=== PATIENT | male | born 1935 | race Caucasian/White ===

== ENCOUNTER 2025-07-31 03:53 | Day surgery (SDC) | payer OTHER, SELFPAY ==
[2025-07-24 09:23] VITALS: BMI 25.5
--- OUTSIDE RECORDS SUMMARY | 2025-07-31 03:56 | XMS_ITS | Encounter Summary ---
Author Organization [facility] Healthcare Address [address] [place] [address] Care Team Providers Care Puffer Tender Name Role Phone Terry Platt MD Primary Care Provider Encounter Details Date Type Department Care Team (Late st Contact Info) Description 07/05/2025 Telephone [facility] Medical Group Cardiology [address] [place] [address] Uriel De La Garza MD [address] [facility] [address] [place] [address] [facility], [place] [place], [place] [id number] Social History Tobacco Use Types Packs/Day Years Used Date Smoking Tobacco: Never Smokeless Tobacco: Never Alcohol Use Standard Drinks/Week Comments Yes 1 (1 standard drink = 0.6 oz pur e alcohol) monthly Sex and Gender Information Value Date Recorded Sex Assigned at Not on file 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 Appt made for today with CT, he will bring what records he has from the Hospital visit in [place] with him to appt. * Telephone Encounter - Codie Garland RN - 07/12/2025 2:40 PM CDT Spoke to pt who did go to ER in [place] last week and was admitted for an overnight stay and required a blood transfusion. States he was told he might possibly have a GI bleed r/t his Eliquis and tofollow up with an egd/colon once home. Pt states he was told to hold his Eliquis but did not want to until [facility] approved of it being held. He did have some swelling in his feet and ankles during the trip. States he was also given scripts for Furosemide 20 mg daily as needed, Potassium 10 meq daily on days when he takes Furosemide, and Pantoprazole 40 mg (he has not started this yet). He is aware to call his PCP regarding a follow up with them and GI referrals. Forwarded to [facility] * Telephone Encounter - Codie Garland RN - 07/12/2025 2:05 PM CDT LM with spouse to return call * Telephone Encounter - Codie Garland RN - 07/12/2025 9:45 AM CDT Tried to call pt, no answer and no voicemail. * Telephone Encounter - Viktoria Malik - 07/12/2025 9:05 AM CDT Pt calling in regard to the below message. States that he would like to speak with [facility] about his symptoms. Advised pt to go to the ED to be evaluated and he stated that he would rather discuss with [facility]. Please advise. Thank you. Contact [phone] * Telephone Encounter - Bailey Frye RN - 07/05/2025 9:28 AM CDT Spoke with pt, pt states that he is in [place] for a wedding and he has been experiencing increasing shortness of breath and weak and wobbly in the knees. Pt denies any lower extremity swelling orchest pain. Reports shortness of breath is worse with exertion. Pt reports that he has been using oxygen boost that he got over the counter which has helped some. Advised pt that he should be evalua tomasz in the ER for his symptoms. Pt verbalizes understanding. * Telephone Encounter - Ines Villegas - 07/05/2025 9:02 AM CDT Patient called in stating that he is having shortness of breath and trouble breathing. Requesting acall back. Thank you. Contact : [phone] documented in this encounter Plan of Treatment Not on file documented as of this encounter Visit Diagnoses Not on filedocumented in this encounter Care Teams Puffer Tender Relationship Specialty Start Date End Date Terry Platt MD [address] [facility] [address] [place] [address] PCP - General Family Medicine 09/01/18 documented as of this encounter
--- OUTSIDE RECORDS SUMMARY | 2025-07-31 03:56 | XMS_ITS | Encounter Summary ---
Author Organization [facility] Healthcare Address [address] [place] [address] Care Team Providers Care Media Planner / Buyer Name Role Phone Terry Platt MD Primary Care Provider Encounter Details Date Type Department Care Team (Late st Contact Info) Description 07/24/2025 Telephone [facility] Medical Group Cardiology [address] [place] [address] Uriel De La Garza MD [address] [facility] [address] [place] [address] [facility], [place] [address] [place] [address] Social History Tobacco Use Types Packs/Day Years Used Date Smoking Tobacco: Never Smokeless Tobacco: Never Alcohol Use Standard Drinks/Week Comments Yes 1 (1 standard drink = 0.6 oz pur e alcohol) monthly Sex and Gender Information Value Date Recorded Sex Assigned at Not on file 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 When she faxed it over, she put the incorrect . She stated that their fax machine is down and is not able to resend it. Please advise. Thank you. Contact : [phone] documented in this encounter Plan of Treatment Not on file documented as of this encounter Visit Diagnoses Not on filedocumented in this encounter Care Teams Media Planner / Buyer Relationship Specialty Start Date End Date Terry Platt MD [address] [facility] [address] [place] [address] PCP - General Family Medicine 09/01/18 documented as of this encounter
--- OUTSIDE RECORDS SUMMARY | 2025-07-31 03:56 | XMS_ITS | Clinical Summary ---
Author Organization [facility] [address] Address [address] [place] [address] Care Team Providers Care Food Aide Name Role Phone Terry Platt MD Primary Care Provider Allergies No known active allergies Medications acetaminophen (TYLENOL) 325 mg tablet Take 2 tablets (650 mg total) by mouth every 6 (six) hours as needed for pain Active glucosamine sulfate 500 mg tablet Take 1 tablet by mouth daily Active Eliquis 2.5 mg tablet Take 1 tablet (2.5 mg total) by mouth 2 (two) times a day 180 tablet 3 0 Active metoprolol XL (TOPROL-XL) 25 mg extended release tablet Take 1 tablet (25 mg total) by mouth daily 90 tablet [address] (PROTONIX) 40 mg EC tablet Take 1 tablet (40 mg total) by mouth daily before breakfast 5 Active furosemide (LASIX) 20 mg tablet Take 1 tablet (20 mg total) by mouth daily as needed (edema) 30 tablet 2 5 Active potassium chloride ER 10 mEq CR tablet Take 1 tablet/capsul e (10 mEq total) by mouth daily as needed (To be taken with furosemide) 30 tablet 2 5 Active furosemide (LASIX) 20 mg tablet Take 1 tablet (20 mg total) by mouth daily as needed 5 07/20/20 25 Discontinu ed(Reorder ) potassium chloride ER 10 mEq CR tablet Take 1 tablet/capsul e (10 mEq total) by mouth daily as needed 5 10/02/20 25 Discontinu ed(Reorder ) Active Problems Problem Noted Date Diagnosed Date NICM (nonischemic cardiomyopathy) 11/02/2018 Pulmonary hypertension 11/02/2018 Atrial fibrillation 09/02/2018 Chronic anticoagulation 09/02/2018 RBBB 09/02/2018 Osteoarthritis 09/02/2018 Encounters Date Type Department Care Team Description 07/24/2025 Telephone [facility] Cardiology [address] [place] [address] [place] [phone] Mert Mix MD 07/20/2025 Telephone [facility] Cardiology [address] [place] [address] [place] [phone] Mert Mix MD Med Refill 07/17/2025 Telephone [place] [address] [place] [phone] Sri Alex NP LAAO 07/13/2025 1:00 PM CDT Office Visit [place] [address] [place] [phone] Sri Alex NP Symptomatic anemia (Primary Dx); Encounter for anticoagulation discussion and counseling; Chronic heart failure with preserved ejection fraction (HFpEF); Hospital discharge follow-up 07/05/2025 Telephone [place] [address] [place] [phone] Mert Mix MD 05/03/2025 Results Follow-Up [place] [address] [place] [phone] Mert Mix MD Transthoracic Echo (TTE) Complete W Doppler/CF 05/02/2025 1:00 PM CDT Ancillary Procedure [place] [address] [place] [phone] NICM (nonischemic cardiomyopathy) (HCC); Longstanding persistent atrial fibrillation (HCC); Pulmonary hypertension (HCC) from Last 3 Months Surgical History Surgery Date Site/Laterality Comments KNEE ARTHROCENTESIS PROSTATECTOMY Medical History Medical History Date Comments Atrial fibrillation (HCC) Cataract Prostate cancer (HCC) Family History Medical History Relation Name Comments Stroke Father Relation Name Status Comments Brother 1 Alive Brother 2 Alive Brother 3 Alive Father (Age 83) Mother (Age 98) Sister 1 Alive Sister 2 Alive Social History Tobacco Use Types Packs/Day Years Used Date Smoking Tobacco: Never Smokeless Tobacco: Never Alcohol Use Standard Drinks/Week Comments Yes 1 (1 standard drink = 0.6 oz pur e alcohol) monthly Sex and Gender Information Value Date Recorded Sex Assigned at Not on file 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 Gender Identity Not on file Sexual Orientation Not on file Obstetrics History Last Filed Vital Signs Vital Sign Reading Time Taken Comments Blood Pressure 112/66 07/13/2025 1:05 PM CDT Pulse 97 07/13/2025 1:05 PM CDT Temperature - - Respiratory Rate - - Oxygen Saturation 97% 07/13/2025 1:05 PM CDT Inhaled Oxygen Concentration - - Weight 80.3 kg (177 lb) 07/13/2025 1:05 PM CDT Height 175.3 cm (5' 9) 07/13/2025 1:05 PM CDT Body Mass Index 26.14 07/13/2025 1:05 PM CDT Plan of Treatment Health Maintenance Due Date Last Done Comments Depression Screening 1935 Fall Risk Assessment 1935 DTaP/Tdap/Td Vaccine (1 - Tdap) 1946 Hepatitis B Screening 1953 Pneumococcal vaccine 65+ (1 of 2 - PCV) 1954 Zoster Vaccine (1 of 2) 1985 Well Visit 65+ 2000 Influenza Vaccine (#1) 2025 8, 08/17/2017, 10/06/2013 Procedures Procedure Name Priority Date/Time Associated Diagnosis Comments TRANSTHORACIC ECHO (TTE) COMPLETE W DOPPLER/CF WO CONTRAST Routine 05/02/2025 2:04 PM CDT NICM (nonischemic cardiomyopathy) (HCC) Longstanding persistent atrial fibrillation (HCC) Pulmonary hypertension (HCC) from Last 3 Months Results * TRANSTHORACIC ECHO (TTE) COMPLETE W DOPPLER/CF WO CONTRAST (05/02/2025 2:04 PM CDT) Estimated EF 55-60 % CONS SCIMAGE EF Mod BP 54 % CONS SCIMAGE Anatomical Region Laterality Modality Ultrasound 05/02/2025 1:04 PM CDT Narrative 05/02/2025 4:27 PM CDT [facility] Medical Group Cardiology [address], [place] [address] [address] [facility] [address], [place] [address] P:[phone] P:[phone] Echocardiographic Report Patient Name: MONICA WALLACE R : 1935 Study Date: 05/02/2025 1:04:06 PM Gender: M Stone Gluer: Dianna Giraldo)([place]), [facility] Location: [facility] Provider: MERT MIX Height(Cm): 175 BSA: 1.95 Weight(Kg): 78.5 Heart Rate: 86 BP: 110 / 72 Quality: Good Order Provider: MERT MIX PROCEDURES: Echocardiographic Report: Transthoracic echocardiogram with complete 2D, M-Mode, and color Doppler examination. With Strain Analysis. INDICATIONS: I42.8 Other cardiomyopathies, I48.11 Longstanding persistent atrial fibrillation, and I27.20 Pulmonary hypertension, unspecified. MEASUREMENTS: 2D/MM Value Range Doppler Value Range EF Mod BP 54 % [ 52 - 72 ] STARLA Vmax 2.19 cm2 [ 2.00 - 4.00 ] Estimated EF 55-60 % AV Mean PG 5 mmHg LV GLS -13.11 % AV Peak Jean 1.62 m/s [ 1.00 - 1.70 ] LVIDd 2D 5.30 cm [ 4.20 - 5.80 ] AV Peak PG 10 mmHg LVIDs 2D 3.81 cm [ 2.50 - 4.00 ] AV VTI 33.15 cm LVPWd 2D 0.83 cm [ 0.60 - 1.00 ] LVOT Diam 2.00 cm [ 1.70 - 2.10 ] IVSd 2D 0.87 cm [ 0.60 - 1.00 ] LVOT Peak Jean 1.13 m/s [ 0.70 - 1.10 ] AoR Diam 2D 3.32 cm [ 3.10 - 3.70 ] LVOT VTI 23.82 cm LA Volume 98.34 ml [ 18.00 - 58.00 ] PV Peak Jean 1.20 m/s [ 0.40 - 0.80 ] LA Volume Index 50 cc/m2 [ 16 - 28 ] TR Peak Jean 2.68 m/s [ 1.00 - 2.80 ] RA Volume 75.64 ml TR Peak PG 29 mmHg RV S` 11.99 mmHg Tapse 1.64 cm [ 1.71 - 5.00 ] 2D/MM Value Range Doppler Value Range - FINDINGS: Interpretation Site: Exam was interpreted at [facility]. Left Ventricle: Normal left ventricular systolic function. No focal wall motion abnormalities. Normal left ventricular wall thickness. Mild enlargement of left ventricle cavity. Diastolic dysfunction is present. Ejection fraction is measured at 54 %. Ejection Fraction is visually estimated to be 55-60 %. Global Longitudinal Strain is -13 %. GLS is abnormal. Right Ventricle: Normal right ventricular systolic function. Mild enlargement of right ventricle. Left Atrium: There is severe enlargement of left atrium. Right Atrium: There is severe enlargement of right atrium. Atrial Septum: Normal atrial septum. Mitral Valve: Normal appearance of the mitral valve. Mild mitral valve regurgitation. There is no hemodynamically significant mitral stenosis by Doppler. Aortic Valve: No evidence of hemodynamically significant aortic stenosis by Doppler. Aortic cusps appear mildly sclerotic. Trileaflet aortic valve. Mild to moderate aortic valve regurgitation. Tricuspid Valve: Normal appearance of the tricuspid valve. Normal right ventricular systolic pressure. Estimated peak RVSP is 30-35 mmHg. Mild tricuspid regurgitation. Pulmonic Valve: Normal appearance of the pulmonic valve. No pulmonic stenosis. Moderate pulmonic regurgitation. Pericardium: Normal pericardium with no significant pericardial effusion. Aorta: Ascending aorta is mildly dilated. No aortic root dilation. IVC: Normal size and normal respiratory collapse consistent with normal right atrial pressure (<5 mmHg). CONCLUSIONS: Normal left ventricular systolic function. No focal wall motion abnormalities. Normal left ventricular wall thickness. Mild enlargement of left ventricle cavity. Diastolic dysfunction is present. Ejection fraction is measured at 54 %. Ejection Fraction is visually estimated to be 55-60 %. Global Longitudinal Strain is -13 %. Normal right ventricular systolic function. Mild enlargement of right ventricle. There is severe enlargement of left atrium. There is severe enlargement of right atrium. Mild mitral valve regurgitation. Mild to moderate aortic valve regurgitation. Mild tricuspid regurgitation. Moderate pulmonic regurgitation. Ascending aorta is mildly dilated. No aortic root dilation. Atrial fibrillation. Electronically Signed By: Mert Mix MD 05/02/2025 4:26:54 PM CDT Procedure Note Mert Mix MD - 05/02/2025 [facility] Medical Group Cardiology [address] [facility] [address] [address] [address] [facility] [address], [place] [address] P:[phone] P:[phone] Echocardiographic Report Patient Name: MONICA WALLACE R : 1935 Study Date: 05/02/2025 1:04:06 PM Gender: M Stone Gluer: Dianna Giraldo)([place]), [facility] Location: [facility] Provider: MERT MIX Height(Cm): 175 BSA: 1.95 Weight(Kg): 78.5 Heart Rate: 86 BP: 110 / 72 Quality: Good Order Provider: MERT MIX PROCEDURES: Echocardiographic Report: Transthoracic echocardiogram with complete 2D, M-Mode, and color Dopplerexamination. With Strain Analysis. INDICATIONS: I42.8 Other cardiomyopathies, I48.11 Longstanding persistent atrialfibrillation, and I27.20 Pulmonary hypertension, unspecified. MEASUREMENTS: 2D/MM Value Range Doppler ValueRange EF Mod BP 54 % [ 52 - 72 ] STARLA Vmax 2.19cm2 [ 2.00 - 4.00 ] Estimated EF 55-60 % AV Mean PG 5mmHg LV GLS -13.11 % AV Peak Jean 1.62m/s [ 1.00 - 1.70 ] LVIDd 2D 5.30 cm [ 4.20 - 5.80 ] AV Peak PG 10mmHg LVIDs 2D 3.81 cm [ 2.50 - 4.00 ] AV VTI 33.15cm LVPWd 2D 0.83 cm [ 0.60 - 1.00 ] LVOT Diam 2.00cm [ 1.70 - 2.10 ] IVSd 2D 0.87 cm [ 0.60 - 1.00 ] LVOT Peak Jean 1.13m/s [ 0.70 - 1.10 ] AoR Diam 2D 3.32 cm [ 3.10 - 3.70 ] LVOT VTI 23.82cm LA Volume 98.34 ml [ 18.00 - 58.00 ] PV Peak Jean 1.20m/s [ 0.40 - 0.80 ] LA Volume Index 50 cc/m2 [ 16 - 28 ] TR Peak Jean 2.68m/s [ 1.00 - 2.80 ] RA Volume 75.64 ml TR Peak PG 29mmHg RV S` 11.99 mmHg Tapse 1.64 cm [ 1.71 - 5.00 ] 2D/MM Value Range Doppler ValueRange - FINDINGS: Interpretation Site: Exam was interpreted at [facility]. Left Ventricle: Normal left ventricular systolic function. No focal wall motionabnormalities. Normal left ventricular wall thickness. Mild enlargement of left ventriclecavity. Diastolic dysfunction is present. Ejection fraction is measured at 54 %. EjectionFraction is visually estimated to be 55-60 %. Global Longitudinal Strain is -13 %. GLSis abnormal. Right Ventricle: Normal right ventricular systolic function. Mild enlargement of rightventricle. Left Atrium: There is severe enlargement of left atrium. Right Atrium: There is severe enlargement of right atrium. Atrial Septum: Normal atrial septum. Mitral Valve: Normal appearance of the mitral valve. Mild mitral valve regurgitation.There is no hemodynamically significant mitral stenosis by Doppler. Aortic Valve: No evidence of hemodynamically significant aortic stenosis by Doppler.Aortic cusps appear mildly sclerotic. Trileaflet aortic valve. Mild to moderate aorticvalve regurgitation. Tricuspid Valve: Normal appearance of the tricuspid valve. Normal right ventricularsystolic pressure. Estimated peak RVSP is 30-35 mmHg. Mild tricuspid regurgitation. Pulmonic Valve: Normal appearance of the pulmonic valve. No pulmonic stenosis. Moderatepulmonic regurgitation. Pericardium: Normal pericardium with no significant pericardial effusion. Aorta: Ascending aorta is mildly dilated. No aortic root dilation. IVC: Normal size and normal respiratory collapse consistent with normal rightatrial pressure (<5 mmHg). CONCLUSIONS: Normal left ventricular systolic function. No focal wall motionabnormalities. Normal left ventricular wall thickness. Mild enlargement of left ventriclecavity. Diastolic dysfunction is present. Ejection fraction is measured at 54 %. EjectionFraction is visually estimated to be 55-60 %. Global Longitudinal Strain is -13 %. Normal right ventricular systolic function. Mild enlargement of rightventricle. There is severe enlargement of left atrium. There is severe enlargement of right atrium. Mild mitral valve regurgitation. Mild to moderate aortic valve regurgitation. Mild tricuspid regurgitation. Moderate pulmonic regurgitation. Ascending aorta is mildly dilated. No aortic root dilation. Atrial fibrillation. Electronically Signed By: Mert Mix MD 05/02/2025 4:26:54 PM CDT Mert Mix MD CV ECHO PROCEDURES Final Result from Last 3 Months Insurance [employer] Care Teams Food Aide Relationship Specialty Start Date End Date Terry Platt MD [address] [facility] [address] [place] [address] PCP - General Family Medicine 09/01/18
[2025-07-31 12:36] VITALS: BP 139/63; PULSE 95; RESP 18; TEMP 36.9; O2SAT 97; BMI 23.6
[2025-07-31] MEDS: LACTATED RINGERS 1,000 ML 150 ML IV CONT (13:02)
--- NOTE | 2025-07-31 13:04 | P.PNAN_ITS ---
Anes - Initial Pre Proc Eval Procedure: Operation Date: 07/31/25 14:00 Proposed Procedures p EGD & Diagnostic Colonoscopy - Keegan Barth MD Date/Time: 07/31/25 13:04 Surgeon: Keegan Barth MD Pre Op Diagnosis: Gastrointestinal hemorrhage, unspecified Patient Data Age: 89 Gender: M Height: 1.75 m Weight: 72.6 kg Last Vital Signs Temp 36.9 C 07/31/25 12:36 Pulse 95 07/31/25 12:36 Resp 18 07/31/25 12:36 BP 139/63 07/31/25 12:36 Pulse Ox 97 07/31/25 12:36 O2 Del Method Room Air 07/31/25 12:36 Allergies Allergy/AdvReac Type Severity Reaction Status Date / Time No Known Allergies Allergy Unknown Verified 07/31/25 12:45 Home Medications ?Medication ?Instructions ?Recorded ?Confirmed ?Type metoprolol succinate 25 mg 25 mg PO DAILY #90 tabs 07/31/25 Rx tablet,extended release 24 hr (Toprol XL) ferrous sulfate 325 mg (65 mg 325 mg PO DAILY #90 tabs 07/14/25 07/31/25 Rx iron) tablet,delayed release furosemide 20 mg tablet (Lasix) 20 mg PO QAM PRN edema 07/14/25 07/24/25 History pantoprazole 40 mg tablet,delayed 40 mg PO QAM #90 tab s 07/14/25 07/31/25 Rx release potassium chloride 10 mEq 10 meq PO DAILY PRN only whe n 07/14/25 07/24/25 History tablet,extended taking Lasix release(part/cryst) (Klor-Con M) Patient hx anesthesia problems: none Family hx anesthesia problems: none Results Review: All pre-operative results and documents have been reviewed as part of the pre- operative evaluation. [facility] Past Medical History Medical History (Updated 07/31/25 @ 13:05 by Tray Donis MD) Atrial fibrillation Moderate mitral regurgitation Cardiomyopathy H/O prostate cancer Mild tricuspid regurgitation by prior echocardiogram Mitral valve regurgitation Family History Family History Father Cerebrovascular accident Mother Family history of coronary artery disease Other Family history of malignant neoplasm Social History Social History Social History: Smoking status: Never smoker Second hand tobacco smoke exposure: No Alcohol intake: never Substance use: never Substance use type: does not use Living arrangements: with family Occupation/Education: retired Gender identity (if verbalized by the patient): Male Spiritual care concerns: No Anes - Eval Final PreProcedure Day of Procedure 07/31/25 13:04 Patient weight: normal Heart: irregular rhythm Lungs: clear to auscultation Airway: Mallampati scale class II Neurological: alert and oriented Last oral intake: >/= 8 hours ASA classification: III Emergent: no Anesthetic plan: proceed Anesthesia type and monitoring: general GIVS and standard monitoring Results Review: All pre-operative results and documents have been reviewed as part of the pre- operative evaluation. Informed Consent: The patient's anesthetic plan and its attendant risks and benefits were discussed with the patient/family/POA. Questions were solicited and answers provided to the satisfaction of the patient/family/POA.
--- NOTE | 2025-07-31 13:37 | PM.HPGS ---
History of Present Illness History of Present Illness Consent: Risks, benefits, and alternatives have been discussed and questions answered. Patient agrees to proceed with procedure. Chief complaint: Gastrointestinal hemorrhage, unspecified Narrative: Mahin Wallace is a 89 year old male here for egd and colonoscopy because anemia while he was using eliquis, no overt gib Review of Systems Review of Systems: All systems reviewed & are unremarkable except as noted in HPI and below PMFSH Past Medical History Medical History (Updated 07/31/25 @ 13:38 by Keegan Barth MD) Anemia Atrial fibrillation Moderate mitral regurgitation Cardiomyopathy H/O prostate cancer Mild tricuspid regurgitation by prior echocardiogram Mitral valve regurgitation Family History Family History Father Cerebrovascular accident Mother Family history of coronary artery disease Other Family history of malignant neoplasm Social History Social History Social History: Smoking status: Never smoker Second hand tobacco smoke exposure: No Alcohol intake: never Substance use: never Substance use type: does not use Living arrangements: with family Occupation/Education: retired Gender identity (if verbalized by the patient): Male Spiritual care concerns: No Meds Home Medications and Allergies Home Medications ?Medication ?Instructions ?Recorded ?Confirmed ?Type metoprolol succinate 25 mg 25 mg PO DAILY #90 tabs 10/17/21 07/31/25 Rx tablet,extended release 24 hr (Toprol XL) ferrous sulfate 325 mg (65 mg 325 mg PO DAILY #90 tabs 07/14/25 07/31/25 Rx iron) tablet,delayed release furosemide 20 mg tablet (Lasix) 20 mg PO QAM PRN edema 07/14/25 07/24/25 History pantoprazole 40 mg tablet,delayed 40 mg PO QAM #90 tabs 07/14/25 07/31/25 Rx release potassium chloride 10 mEq 10 meq PO DAILY PRN only when 07/14/25 07/24/25 History tablet,extended taking Lasix release(part/cryst) (Klor-Con M) Allergies Allergy/AdvReac Type Severity Reaction Status Date / Time No Known Allergies Allergy Unknown Verified 07/31/25 12:45 Vital Signs Vital Signs - 24 hr 07/31/25 12:36 Temperature 98.5 F Pulse Rate 95 Respiratory Rate 18 Blood Pressure 139/63 Pulse Oximetry 97 Oxygen Delivery Room Air Exam Const: General: comfortable and no acute distress HENMT: Face/Nose/Sinus: Normal nares present Eyes: General: appearance normal, both eyes and all related structures Resp: Auscultation: clear to auscultation bilaterally Cardio: Rate: regular rate Rhythm: regular rhythm GI: Inspection: non-distended GI Palp: Yes Soft to palpation Extrem: General: normal to inspection Psych: Mental Status: mental status grossly normal Assessment and Plan Assessment and plan (1) Anemia: Code(s): D64.9 - Anemia, unspecified Status: Acute Assessment and Plan: egd and colonoscopy for gi workup of anemia
--- NOTE | 2025-07-31 13:47 | SUR.OPER ---
EGD: ended 1343 COLON: started 1346
--- NOTE | 2025-07-31 14:02 | S_PTH ---
PATIENT: Mahin Wallace LOC: [facility]OLY Yi#:[id number] AGE/SX: 89/M ROOM: RE07/31/[address]: Keegan Barth MD : 1935 BED: DIS: 07/31/2025 SPEC #: [id number] RECD: 08/01/25 08:05 STATUS: RC STRE[address] #: [id number] YVONNE: 07/31/25 14:[address]: Keegan Barth DEPT: [facility] Surgical RECD BY: Manjeet Don ENTERED: 08/01/25 08:05 SP TYPE: Surgical OTHR DR: Terry Platt MD Tissues: A - Colon Biopsy B - Gastric Biopsy Procedures: Hematoxylin and Eosin Stain Gross and Microscopic Level 4 MLH1 MSH2 MSH6 PMS2
[2025-07-31 14:03] VITALS: BP 113/70; PULSE 86; RESP 25; O2SAT 100
[2025-07-31 14:13] VITALS: BP 114/64; PULSE 77; RESP 21; O2SAT 98
[2025-07-31 14:33] VITALS: BP 141/83; PULSE 81; RESP 24; O2SAT 100
== END 2025-07-31 14:38 | disposition home or self-care (01) ==
PROVIDERS: PCP Family Medicine; Referring Provider Physician Assistant; Visit Provider Internal Medicine Gastroenterology
PROC: 0DJ08ZZ Inspection of Upper Intestinal Tract, Via Natural or Artificial Opening Endoscopic (ICD-10-PCS; CPT 45378; principal; 2025-07-31 14:00)
DX: C18.0 Malignant neoplasm of cecum (principal); K64.8 Other hemorrhoids; K57.30 Diverticulosis of large intestine without perforation or abscess without bleeding; K21.9 Gastro-esophageal reflux disease without esophagitis; I48.91 Unspecified atrial fibrillation; D64.9 Anemia, unspecified; I08.1 Rheumatic disorders of both mitral and tricuspid valves; Z85.46 Personal history of malignant neoplasm of prostate; Z80.9 Family history of malignant neoplasm, unspecified; Z82.49 Family history of ischemic heart disease and other diseases of the circulatory system
CPT/HCPCS: 43239; 45380; 88305; 88342; J7120

== ENCOUNTER 2025-08-24 11:57 | Outpatient (CLI) | payer OTHER, SELFPAY ==
--- NOTE | 2025-08-24 12:48 | ECG_ITS ---
Test Date: 2025-08-24 13:01:20 Measurements Intervals [place] Rate: 78 P: 0 WI: 0 QRS: 93 QRSD: 158 T: -34 QT: 420 QTc: 479 Interpretive Statements ATRIAL FIBRILLATION WITH ABERRANT CONDUCTION OR VENTRICULAR PREMATURE COMPLEXES Right bundle-branch block No previous ECG available for comparison Electronically Signed On 08-24-2025 13:36:32 BACK PANEL PADDER by Femi Mullins M.D.
[2025-08-24 13:08] LABS: Hematocrit 42.5 % (42.0-52.0); Hemoglobin 11.7 g/dL (14.0-18.0); Immature Granulocyte Percent A 0.2 % (0-0.5); Lymphocytes Absolute Auto 1.33 K/mm3 (0.9-3.2); Mean Corpuscular HGB Conc 27.5 g/dl (32-36); Mean Corpuscular Hemoglobin 25.1 pg (26-34); Mean Corpuscular Volume 91.0 fl (80-100); Nucleated Red Blood Cells Absolute Auto 0.000 K/mm3 (0.0-0.012); Nucleated Red Blood Cells Perc 0.0 % (0.0-0.2); Platelet Count Result 267 k/mm3 (150-375); Red Blood Count 4.67 M/mm3 (4.6-6.20); White Blood Count 8.3 K/mm3 (4.5-10.0)
[2025-08-24 14:08] LABS: Anisocytosis 1+; Burr Cells 1+; Hypochromasia 1+; Ovalocytes 1+; Schistocytes None Seen
[2025-08-24 14:10] LABS: Carcinoembryonic Antigen 1.8 ng/mL (0.0-3.0)
--- OUTSIDE RECORDS SUMMARY | 2025-08-24 19:25 | XMS_ITS | Clinical Summary ---
Author Organization [facility] [address] [facility] [address] Address [address] [place] [address] Care Team Providers Care Line Installer Trolley Name Role Phone Terry Platt MD Primary [...] ER 10 mEq CR tablet Take 1 tablet/capsule (10 mEq total) by mouth daily as needed (To be taken with furosemide) 30 tablet 2 5 Active Active Problems Problem Noted Date Diagnosed Date NICM (nonischemic cardiomyopathy) 11/02/2018 Pulmonary hypertension 11/02/2018 Atrial fibrillation 09/02/2018 Chronic anticoagulation 09/02/2018 RBBB 09/02/2018 Osteoarthritis 09/02/2018 Encounters Date Type Department Care Team Description 08/11/2025 Telephone [facility] Cardiology [address] [place] [address] Uriel De La Garza MD 07/24/2025 Telephone [facility] Cardiology [address] [place] [address] [place] [phone] Uriel De La Garza MD 07/20/2025 Telephone [facility] Cardiology [address] [place] [address] [place] [phone] Uriel De La Garza MD Med Refill 07/17/2025 Telephone [facility] Cardiology [address] [place] [address] [place] [phone] Sri Alex NP LAAO 07/13/2025 1:00 PM CDT Office Visit [facility] Cardiology [address] [place] [address] [place] [phone] Sri Alex NP Symptomatic anemia (Primary Dx); Encounter for anticoagulation discussion and counseling; Chronic heart failure with preserved ejection fraction (HFpEF); Hospital discharge follow-up 07/05/2025 Telephone 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
--- OUTSIDE RECORDS SUMMARY | 2025-08-24 19:25 | XMS_ITS | Encounter Summary ---
Author Organization [facility] Healthcare Address [address] [place] [address] Care Team Providers Care Carbon Dioxide Operator Name Role Phone Terry Platt MD Primary Care Provider Encounter Details Date Type Department Care Team (Late st Contact Info) Description 07/24/2025 Telephone [facility] Medical Group Cardiology [address] [place] [address] Uriel De La Garza MD [address] [facility] [address] [place] [address] [facility], [place] [address] [place], [place] [id number] Social History Tobacco Use Types Packs/Day Years Used Date Smoking Tobacco: Never Smokeless Tobacco: Never Alcohol Use Standard Drinks/Week Comments Yes 1 (1 standard drink = 0.6 oz pur e alcohol) monthly Sex and Gender Information Value Date Recorded Sex Assigned at Not on file 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 * Telephone Encounter - Codie Garland RN - 08/01/2025 10:39 AM CDT Tried to call pt, no answer or VM * Telephone Encounter - Viktoria Malik - 08/01/2025 9:26 AM CDT Pt requesting a call back from [facility] regarding his upcoming procedure. Tried to ask the patient for more information and he replied I would just like to speak with Dr. De La Garza for some advice because he's the only doctor I know. Please advise. Thank you. Contact [phone] * Telephone Encounter - Codie Garland RN - 07/24/2025 1:33 PM CDT Spoke to Eboni, verified correct date of , updated form and faxed back * Telephone Encounter - Ines Villegas - 07/24/2025 1:16 PM CDT Eboni from [facility] called and states that she faxed over a cardiac clearance form for this patient. When she faxed it over, she put the incorrect . She stated that their fax machine is down and is not able to resend it. Please advise. Thank you. Contact : [phone] documented in this encounter Plan of Treatment Not on file documented as of this encounter Visit Diagnoses Not on filedocumented in this encounter Care Teams Carbon Dioxide Operator Relationship Specialty Start Date End Date Terry Platt MD [address] [address] PCP - General Family Medicine 09/01/18 documented as of this encounter
--- OUTSIDE RECORDS SUMMARY | 2025-08-24 19:25 | XMS_ITS | Encounter Summary ---
Author Organization [facility] Healthcare Address [address] [place] [address] Care Team Providers Care Flow Nurse Name Role Phone Terry Platt MD Primary Care Provider Encounter Details Date Type Department Care Team (Late st Contact Info) Description 08/11/2025 Telephone [facility] Medical Group Cardiology [address] [place] [address] Uriel De La Garza MD [address] [facility] [address] [place] [address] [facility], [place] [address] [place] [address] Social History Tobacco Use Types Packs/Day Years Used Date Smoking Tobacco: Never Smokeless Tobacco: Never Alcohol Use Standard Drinks/Week Comments Yes 1 (1 standard drink = 0.6 oz pur e alcohol) monthly Sex and Gender Information Value Date Recorded Sex Assigned at Not on file 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 * Telephone Encounter - Ines Villegas - 08/11/2025 9:19 AM CDT Patient called in and canceled his appt with DK on 08/22. He has colon cancer surgery that day. He states that once things start to settle back down, he will call to reschedule. He asked if we could let MAF know. Thank you. documented in this encounter Plan of Treatment Not on file documented as of this encounter Visit Diagnoses Not on filedocumented in this encounter Care Teams Flow Nurse Relationship Specialty Start Date End Date Terry Platt MD [address] [place] [id number] PCP - General Family Medicine 09/01/18 documented as of this encounter
== END 2025-08-24 11:58 | disposition home or self-care (01) ==
LOC: ANHSURGERY 12:01
PROVIDERS: PCP Family Medicine; Visit Provider Surgery
DX: C18.0 Malignant neoplasm of cecum (principal); I10 Essential (primary) hypertension
CPT/HCPCS: 36415; 82378; 85025; 93005

== ENCOUNTER 2025-08-30 17:58 | Inpatient (IN) | payer OTHER, SELFPAY ==
--- NOTE | 2025-08-24 12:01 | PC.NURSE ---
[facility] has started construction of its new state of the art ER which will open Spring 2026. With this, we anticipate parking may be a challenge for some our surgical patients and families. Parking spaces are limited but are available for all Surgical, obstetrics, and ER patients sharing this lot. If you arrive and find you are having a hard time finding a parking space, please note that we understand the challenges, please drive around the hospital and park near Hospital Entrance 1. When you enter this entrance, you can ask a volunteer to direct or take you back to the surgical waiting area to check in. We appreciate everyone?s understanding of these expected challenges while we build for your future. Report to the Outpatient Waiting Room, entrance under the green pavilion located off [address], at time __10 AM on date _08/30/25 . Planned Procedure Time: _1200 NOON .? Time changes happen often and if your time is changed the preop area will call you the afternoon before. - You and your visitor will be asked to self-screen and do not enter if you have any COVID symptoms. Please call surgeon if you need to reschedule. - A mask is optional within the hospital at this time. Patients may have clear liquids (water, carbonated beverages, clear teas, apple juice) until 3 hours prior to surgery(9AM) with a maximum of 20 ounces. - No food from midnight until time of surgery and no smoking, or chewing tobacco (or any form of nicotine). No chewing gum, candy or mints. - Take only the following medications with a SIP of water on the morning of surgery: METOPROLOL DO NOT STOP ANY OF YOUR OTHER PRESCRIPTION MEDICATIONS PRIOR TO SURGERY EXCEPT THE FOLLOWING Hold all vitamins and supplements for 3 days per anesthesiologist.LAST DOSE08/26/25 Medications to discontinue per physician NONE Date to take last dose ENSURE BUNDLE PACK PER DR ELISE BOWEL PREP PER DR ELISE CHLORHEXIDINE SHOWER DAY BEFORE SURGERY AND MORNING OF SURGERY Please no make-up, nail togolese, hairspray, perfume, deodorant, or body powder the day of surgery.? No jewelry (including any body piercings) or valuables the day of surgery, leave them at home.? Please take a shower or bath the night before, or the morning of, surgery with an antibacterial soap.? Wear comfortable, loose fitting clothing.? Children are encouraged to wear pajamas. - Jewelry must be removed prior to entering the operating room.? Rings and piercings that are not removed may be cut off. - The hospital will not accept responsibility for valuables.? - Please leave all valuables, including medications, at home the day of surgery. If you are going home after surgery, a licensed stock driver must drive you home.? - NO public transportation without another adult if you receive anesthesia. - We recommend that an adult stay with you for 24 hours following discharge. - We also recommend that you do not drive, make important decision, drink alcoholic beverages, or take any drugs that were not prescribed by your health care provider for at least 24 hours after your discharge time. For Pediatric surgeries, we recommend two adults accompany the child home. Follow any additional instructions given to you from your surgeon. VERBAL AND WRITTEN instructions given to _PATIENT and asked if any additional questions and then verbalized understanding. Patient advised to call surgeon office or pre surgery nurse liaison [phone] if any additional questions.
[2025-08-24 12:05] VITALS: BMI 24.1
[2025-08-24 12:40] VITALS: BP 138/63; PULSE 66; RESP 18; TEMP 36.8; O2SAT 97
[2025-08-30] VITALS (10 sets, daily range): BP systolic 111–145; BP diastolic 67–88; PULSE 78–113; RESP 12–22; TEMP 36.2–36.8; O2SAT 92–98; BMI 23.3; BMI 23.6
--- OUTSIDE RECORDS SUMMARY | 2025-08-30 02:00 | XMS_ITS | Clinical Summary ---
Author Organization [facility] [address] [facility] [address] Address [address] [place] [address] Care Team Providers Care Grinder Set Up Operator Thread Tool Name Role Phone Terry Platt MD Primary [...] Type Department Care Team Description 08/11/2025 Telephone [facility] Cardiology [address] [place] [address] Uriel De La Garza MD 07/24/2025 Telephone [facility] Cardiology [address] [place] [address] [place] [phone] Uriel De La Garza MD 07/20/2025 Telephone [facility] Cardiology [address] [place] [address] [place] [phone] Uriel De La Garza MD Med Refill 07/17/2025 Telephone [facility] Cardiology [address] [place] [address] [place] [phone] Sri Alex NP LAAO 07/13/2025 1:00 PM CDT Office Visit [facility] Cardiology [address] [place] [address] [place] [phone] Sri Alex NP Symptomatic anemia (Primary Dx); Encounter for anticoagulation discussion and counseling; Chronic heart failure with preserved ejection fraction (HFpEF); Hospital discharge follow-up 07/05/2025 Telephone [facility] Cardiology [address] [place] [address] [place] [phone] Uriel De La Garza MD from Last [...] on file 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
[2025-08-30] MEDS: KETOROLAC 15 MG/ML VIAL (*BKC) IV PUSH (10:42)
[2025-08-30] MEDS: ACETAMINOPHEN 500 MG TABLET 1000 MG PO (10:42)
[2025-08-30] MEDS: LACTATED RINGERS 1,000 ML 30 ML IV CONT ×2 (10:42→17:00)
--- NOTE | 2025-08-30 13:00 | WPDHPUPDATE1 ---
History and Physical Update Update Date/Time: 08/30/25 13:00 History and Physical has been reviewed, including an updated exam of the patient. There are NO changes in the patient's condition. Risks, benefits, and alternatives have been discussed and questions answered. Patient agrees to proceed with procedure.
--- NOTE | 2025-08-30 13:17 | WPDANESEPPF ---
Anes - Initial Pre Proc Eval Procedure: Operation Date: 08/30/25 12:00 Proposed Procedures p Laparoscopic Right Hemicolectomy, DaVinci Assisted - Juan David Perry DO Date/Time: 08/30/25 13:17 Surgeon: Juan David Perry DO Pre Op Diagnosis: Cecal Adenocarcinoma Patient Data Age: 89 Gender: M Height: 1.75 m Weight: 71.5 kg Last Vital Signs Temp 98.2 F 08/30/25 10:24 Pulse 88 08/30/25 10:24 Resp 18 08/24/25 12:40 BP 126/79 08/30/25 10:24 Pulse Ox 98 08/30/25 10:24 O2 Del Method Room Air 08/24/25 12:40 Allergies Allergy/AdvReac Type Severity Reaction Status Date / Time No Known Allergies Allergy Unknown Verified 08/30/25 10:21 Home Medications ?Medication ?Instructions ?Recorded ?Confirmed ?Type metoprolol succinate 25 mg 25 mg PO DAILY #90 tabs 10/17/21 08/30/25 Rx tablet,extended release 24 hr (Toprol XL) ferrous sulfate 325 mg (65 mg 325 mg PO DAILY #90 tabs 07/14/25 08/30/25 Rx iron) tablet,delayed release ciprofloxacin HCl 500 mg tablet 500 mg PO .COMPLEX #1 tablet 08/10/25 08/30/25 Rx metronidazole 500 mg tablet 500 mg PO .COMPLEX #3 tabs 08/10/25 08/30/25 Rx Laboratory Tests 08/30/25 10:37 Blood Type Pending Antibody Screen Pending Patient hx anesthesia problems: none Family hx anesthesia problems: none Results Review: All pre-operative results and documents have been reviewed as part of the pre-operative evaluation. [facility] Past Medical History Medical History Cecum mass Anemia Atrial fibrillation Moderate mitral regurgitation Cardiomyopathy H/O prostate cancer Mild tricuspid regurgitation by prior echocardiogram Mitral valve regurgitation Family History Family History Father Cerebrovascular accident Mother Family history of coronary artery disease Other Family history of malignant neoplasm Social History Social History Social History: Smoking status: Never smoker Second hand tobacco smoke exposure: No Alcohol intake: never Substance use: never Substance use type: does not use Living arrangements: with family Occupation/Education: retired Gender identity (if verbalized by the patient): Male Spiritual care concerns: No Anes - Eval Final PreProcedure Day of Procedure 08/30/25 13:17 Patient weight: normal Heart: regular rate and rhythm Lungs: clear to auscultation Airway: Mallampati scale Neurological: alert and oriented Last oral intake: >/= 8 hours ASA classification: III Emergent: no Anesthetic plan: proceed Anesthesia type and monitoring: general ETT and standard monitoring Results Review: All pre-operative results and documents have been reviewed as part of the pre-operative evaluation. Informed Consent: The patient's anesthetic plan and its attendant risks and benefits were discussed with the patient/family/POA. Questions were solicited and answers provided to the satisfaction of the patient/family/POA.
[2025-08-30] MEDS: ceFAZolin 2 GM in SODIUM CHLORIDE 0.9% IV 50 ML 100 ML IVPB (13:29)
[2025-08-30] MEDS: BUPIVACAINE/EPINEPHRINE 0.5% 50 ML VIAL 60 ML INFILTRATE (14:28)
--- NOTE | 2025-08-30 16:43 | S_PTH ---
PATIENT: Mahin Wallace LOC: [id number] U#:[id number] AGE/SX: 89/M ROOM: 344 RE08/30/[address]: Juan David Perry DO : 1935 BED: 01 DIS: 09/01/2025 SPEC #: [id number] RECD: 08/31/25 08:52 STATUS: RC REQ #: [id number] YVONNE: 08/30/25 16:[address]: Juan David Perry DEPT: [facility] Surgical RECD BY: Anabell Cee ENTERED: 08/31/25 08:53 SP TYPE: Surgical OTHR DR: Terry Platt MD Tissues: A - Colon Segment Tumor Procedures: Hematoxylin and Eosin Stain Gross and Microscopic Level 6
--- NOTE | 2025-08-30 17:02 | W.PM.PROC2 ---
Procedure Note - Detailed Date of Procedure 08/30/25 Pre-op Diagnosis Cecal Adenocarcinoma Post-op Diagnosis Other (Cecal adenocarcinoma, malrotation) Procedure Performed Laparoscopic right hemicolectomy with ileocolic anastomosis, da Jose assisted Surgeon Juan David Perry, DO Talent Development Coordinator Vernon Matthew, DO Anesthesia General and Local (0.5% bupivacaine with epinephrine) Indications this is an 89-year-old man who presented with a recent finding of cecal adenocarcinoma. About 2 months ago patient had been found to be significantly anemic and required a transfusion. He was then referred for EGD and colonoscopy which was performed on 07/31/2025. A malignant-appearing cecal mass was identified and biopsies. Biopsies confirmed adenocarcinoma. He was then referred for surgical evaluation. CT of his abdomen and pelvis showed no evidence of metastatic disease. His preoperative CEA level was 1.8. Discussions were made with the patient about treatment options and decision was made to proceed with robotic assisted laparoscopic right hemicolectomy. Findings Robotic assisted laparoscopic right hemicolectomy was performed. Upon entering the abdomen laparoscopically, the cecum was identified in a more medial position and there appeared to be some adhesive bands along the right lateral abdomen. These adhesive bands were taken down to help appropriately identify the small bowel entering into the cecum. There were many adhesions between the cecum and sigmoid colon as well as the ascending colon to the transverse colon. These adhesions had to be carefully taken down to adequately identify the appropriate anatomy for mobilization and resection. A high ligation of the ileocolic vessels was performed. Due to the nature of the malrotation, the small bowel appeared to come up to the transverse colon in an anti peristaltic orientation. A [id number]-fb-[id number] anastomosis was performed. Indocyanine green was utilized to assess adequate perfusion to the resection margins. The right colon was then removed and sent to the lab for pathology. Description of Procedure Procedure as well as risks, benefits, and alternatives were discussed with the patient.? Written consent was obtained and placed in chart prior to procedure.? Patient was brought back to surgical suite.? He was placed supine on operating table.? Time-out was done to confirm patient and procedure.? He was then intubated by the anesthesia department.? His abdomen was prepped and draped in sterile fashion using chlorhexidine prep.? An 8 mm incision was made in the left upper quadrant and a 5 mm Optiview trocar was advanced through the abdominal layers under direct visualization.? Once inside the abdominal cavity, carbon dioxide insufflation was used to create a pneumoperitoneum.? Camera was inserted in the abdomen was inspected.? The patient was placed in 5 degree Trendelenburg and 10? rotated left an 8 mm incision was made in the suprapubic region in midline and an 8 mm trocar was inserted under direct visualization another 8 mm incision was made in the umbilical region just inferior into the left of the umbilicus and an 8 mm trocar was inserted under direct visualization.? A 12 mm incision was made in the left lateral abdomen and a 12 mm trocar was inserted under direct visualization.? An 8 mm incision was made in the left lower quadrant and an 8 mm assist port was placed under direct visualization.? The 5 mm port was then removed and exchanged for an 8 mm port.? The robotic arms were then brought up to the patient's bedside and secured to the ports.? The camera and instruments were then inserted.? I then moved over to the robotic console and took control of the camera and instruments.? Thorough inspection was made around the abdominal cavity.? The omentum was then reflected cephalad over the transverse colon.? There appeared to be some adhesions in the right lower quadrant and extending up towards the hepatic flexure. There appeared to be some small bowel directly under this area. The colon however did not appear to be in its typical location and all the small bowel appeared on the right side of the abdomen and the cecum appeared closer to the midline. A carefully traced the small bowel proximally and distally and the duodenum appeared to be entirely on the right side of the abdomen. The right lower quadrant adhesive bands were taken down to adequately mobilize the bowel. Due to the location of the cecum I then had to reposition the patient to about 10? rotated to the right. This then allowed me to carefully lift up the cecum and inspected. There appeared to be many adhesions around the terminal ileum, cecum, ascending colon and transverse colon. These adhesions were carefully taken down using scissors with electrocautery to better visualize the right colon with the mesocolon. I was not able to perform a typical medial to lateral dissection due to the malrotation. The hepatic flexure attachments were carefully taken down using scissors with electrocautery and the vessel sealer. I then was able to identify an area on the proximal transverse colon that would appear appropriate for resection and anastomosis. A window was created in the mesocolon at this location using the vessel sealer. A blue load 60 mm robotic stapler was then advanced across the transverse colon at this point and clamped and fired. I then took down the mesocolon using the vessel sealer. The right branch of the middle colic artery was ligated with the vessel sealer and this was dissected towards the root of the ileocolic vessels. I then identified an area on the terminal ileum that appeared appropriate for resection and anastomosis. A window was created in the mesentery using the vessel sealer and then a 60 mm blue robotic stapler was advanced and clamped and fired. The mesentery was then taken down perpendicular to this and angled back towards the ileocolic vessels using the vessel sealer. The ileocolic vessels were then ligated using the vessel sealer. This freed up the specimen completely and it was then placed in the right upper quadrant to be removed at the end of the procedure. Indocyanine green was then given intravenously to assess perfusion to the resected margins. There appeared to be excellent blood flow going to the entire small bowel and up to the staple line as well as to the transverse colon staple line. The 2 ends of the bowel were then brought together in appeared to come together in a [id number] fashion without any tension.? I placed the terminal ileum alongside the transverse colon in an antiperistaltic fashion.? Enterotomies were then made on the anti mesenteric border of the terminal ileum and transverse colon using scissors with electrocautery.? The 60 mm blue load stapler was then advanced through each enterotomy in the bowel was clamped together in a [id number]-gk-[id number] fashion.? Once the bowel appeared in proper position I then fired the stapler to create the kjwy-[id number]-[id number] anastomosis.? The anastomosis was carefully inspected and appeared patent and healthy and viable.? The enterotomy was then closed using 3 0 V lock running suture.? A 2nd layer closure was then performed using 3-0 V lock seromuscular imbricating sutures.? One final inspection was made around the abdominal cavity and hemostasis appeared adequate and no other abnormalities were noted.? A laparoscopic grasper was then placed on the appendix to secure the specimen for extraction.? The robotic instruments were then removed and the robotic arms were disengaged from the ports.? The pneumoperitoneum was released and the ports were then removed.? The patient was flattened out in bed.? The 12 mm port site was extended to about 3 cm transversely using 15 blade scalpel and the fascia was extended using electrocautery. The small Jenaro wound protector was then inserted and the specimen was then delivered through the wound protector.? One final inspection was made through the wound protector and no other abnormalities were noted.? The wound protector was then removed.? The peritoneum was then closed using 0 Vicryl running suture.? The fascia was then reapproximated using 0 PDS adkivj-nh-ubzaw sutures.? 0.5% bupivacaine with epinephrine was infiltrated locally around the incisions and abdominal wall.? The skin of all the incisions was then approximated using 4 Monocryl subcuticular suture.? Exofin glue was then applied on top.? The patient was then awakened from anesthesia, extubated, and transferred to recovery. Estimated Blood Loss 50 Pathology Yes (right colon) Complications No immediate complications Condition Stable Disposition Floor [facility] Billing Surgery - Charge Forward: Surgery Billing
--- NOTE | 2025-08-30 18:20 | ADMGEN ---
This patient, Mahin Wallace, was admitted to Medical Room 344-01. Patient/family oriented to hospital policies and general routines including ID bracelet, bed and alarms, visiting hours, pain management, procedures, bathroom and other care routines, personal items, smoking policy, room service/diet, and visiting hours. Information on how to activate the Rapid Response Team has been discussed. Patient/Family are encouraged to report perceived risks to care and to ask questions if they do not understand what they are told or what they should do.
[2025-08-30] MEDS: LACTATED RINGERS 1,000 ML 100 ML IV CONT (18:51)
[2025-08-30] MEDS: ACETAMINOPHEN 325 MG TABLET 650 MG PO ×2 (18:53→23:52)
[2025-08-31] VITALS (8 sets, daily range): BP systolic 107–132; BP diastolic 58–76; PULSE 63–86; RESP 18–20; TEMP 36.1–36.7; O2SAT 97–99
[2025-08-31 04:48] LABS: Hematocrit 36.3 % (42.0-52.0); Hemoglobin 10.7 g/dL (14.0-18.0); Mean Corpuscular HGB Conc 29.5 g/dl (32-36); Mean Corpuscular Hemoglobin 25.2 pg (26-34); Mean Corpuscular Volume 85.4 fl (80-100); Platelet Count Result 207 k/mm3 (150-375); Red Blood Count 4.25 M/mm3 (4.6-6.20); White Blood Count 16.7 K/mm3 (4.5-10.0)
[2025-08-31 05:01] LABS: Anion Gap 4 mmol/L (4-12); Blood Urea Nitrogen 28 mg/dL (9-20); Calcium 8.2 mg/dL (8.4-10.2); Carbon Dioxide 25 mmol/L (22-30); Chloride 103 mmol/L (98-107); Estimated CRCL calculation 44 ml/min; Estimated Glomerular Filt Rate > 60; Glucose 192 mg/dL (65-110); Potassium 4.9 mmol/L (3.4-5.0); Sodium 132 mmol/L (137-145)
[2025-08-31] MEDS: ACETAMINOPHEN 325 MG TABLET 650 MG PO ×3 (06:00→16:54)
[2025-08-31] MEDS: LACTATED RINGERS 1,000 ML 100 ML IV CONT (06:01)
--- NOTE | 2025-08-31 09:00 | PM.PNGS ---
Progress Note: A&P Assessment and Plan (1) Hypertension: Code(s): I10 - Essential (primary) hypertension Status: Acute (2) Adenocarcinoma of cecum: Code(s): C18.0 - Malignant neoplasm of cecum Status: Acute Assessment and Plan: POD #1 s/p RAL right colectomy. Doing well postoperatively. Tolerating liquids well. Reports small BM. Jarrell removed yesterday. Ambulating in room, continue to encourage ambulation. Continue PRN pain control, limit narcotics as able. Continue to encourage IS use. Continue FLD this am, may consider advancing later today. DC IVF. Pathology pending. Please see attending attestation for further plan and updates Subjective Subjective Date/Time Seen: 08/31/25 09:00 Interval history: NAEON. Doing well this am. Reports a small BM this am. Has been tolerating a lot of liquids. Ambulating in room to restroom. Urinating without difficulty. Incisions CDI. Abdomen aTTP. Pain controlled. Review of Systems Review of Systems: All systems reviewed & are unremarkable except as noted in HPI and below Exam Const: General: cooperative, healthy appearing, no acute distress, alert and awake HENMT: Head: normocephalic and atraumatic Eyes: EOM: EOMs intact bilaterally Neck: Neck: normal visual inspection and no JVD Resp: Other: symmetric expansion, no IWOB, on RA Cardio: Rate: regular rate Rhythm: regular rhythm GI: Other: soft, aTTP, ND, nonperitoneal, incisions CDI Skin: Other: Dry, intact Neuro: General: oriented to person, oriented to place and oriented to time Psych: Appearance: grossly normal Mental Status: mental status grossly normal Speech and movement: Normal speech and movement present Affect: normal affect Attitude: cooperative Thought process: Normal thought process present Thought content: Yes Normal thought content present Insight: Good insight present (Psych) Judgement: Good judgement present (Psych) Objective Data Vital Signs Vital Signs: Vital Signs - 24 hr 08/30/25 10:24 08/30/25 17:00 08/30/25 17:15 Temperature 98.2 F 98.3 F Pulse Rate 88 92 95 Respiratory Rate 14 20 Blood Pressure 126/79 111/68 124/72 Pulse Oximetry 98 98 95 Oxygen Delivery Simple Face Mask Room Air Oxygen Flow Rate 8 08/30/25 17:30 08/30/25 17:45 08/30/25 17:57 Temperature 97.7 F Pulse Rate 97 85 102 H Respiratory Rate 13 12 22 H Blood Pressure 134/88 135/74 133/82 Pulse Oximetry 95 92 93 Oxygen Delivery Room Air Room Air Room Air Oxygen Flow Rate 08/30/25 18:15 08/30/25 18:20 08/30/25 18:35 Temperature 97.2 F L 97.2 F L Pulse Rate 113 H 78 Respiratory Rate 16 16 Blood Pressure 135/87 136/67 Pulse Oximetry 93 95 Oxygen Delivery Room Air Oxygen Flow Rate 08/30/25 19:05 08/30/25 22:21 08/31/25 02:00 Temperature 97.5 F L 98.1 F 97.2 F L Pulse Rate 89 98 86 Respiratory Rate 18 18 18 Blood Pressure 131/81 145/67 H 122/64 Pulse Oximetry 97 98 97 Oxygen Delivery Oxygen Flow Rate 08/31/25 06:00 Temperature 97.9 F Pulse Rate 63 Respiratory Rate 18 Blood Pressure 107/58 L Pulse Oximetry 97 Oxygen Delivery Oxygen Flow Rate Intake/Output Intake/Output: Intake & Output 08/28/25 08/29/25 08/30/25 08/31/25 23:59 23:59 23:59 23:59 Intake Total 1650 1500 Balance 1650 1500 Meds/Results Medications: Active Medications Generic Name Dose Route Start Last Admin Trade Name Freq PRN Reason Stop Dose Admin Acetaminophen 650 mg 08/30/25 18:00 08/31/25 06:00 Acetaminophen 325 Mg Tablet PO 650 mg Q6HR DONNA Administration Hydrocodone Bitart/Acetaminophen 1 tab 08/30/25 17:58 Hydrocodone/Acetaminophen (*Crx) 5-325 Mg Tablet PO Q4H PRN Pain Rated 4-6 Hydrocodone Bitart/Acetaminophen 1 tab 08/30/25 17:58 Hydrocodone/Acetaminophen (*Crx) 7.5-325 Mg Tablet PO Q4H PRN Pain Rated 7-10 Enoxaparin Sodium 40 mg 08/31/25 09:00 Enoxaparin 40 Mg/0.4 Ml Syringe SUB-Q DAILY DONNA Lactated Ringer's 1,000 mls @ 100 mls/hr 08/30/25 17:58 08/31/25 06:01 Lr - Lactated Ringers Iv IV CONT 100 mls/hr .Q10H DONNA Administration Metoprolol Succinate 25 mg 08/31/25 09:00 Metoprolol Succinate Ext Rel 25 Mg Tabcr PO DAILY DONNA Morphine Sulfate 2 mg 08/30/25 17:58 Morphine Sulfate (*Crx) 4 Mg/Ml Inj IV PUSH Q2H PRN Breakthrough Pain Rated 4-6 or NPO Morphine Sulfate 4 mg 08/30/25 17:58 Morphine Sulfate (*Crx) 4 Mg/Ml Inj IV PUSH Q2H PRN Breakthrough Pain Rated 7-10 or NPO Naloxone HCl 0.1 mg 08/30/25 17:58 Naloxone Hcl 0.4 Mg/Ml Vial IV PUSH Q2M PRN Opiate Reversal Ondansetron HCl 4 mg 08/30/25 17:58 Ondansetron Inj 4 Mg/2 Ml Vial IV PUSH Q4H PRN Nausea And Vomiting Labs Labs: Laboratory Results - last 24 hr 08/30/25 08/31/25 10:37 04:28 WBC 16.7 H RBC 4.25 L Hgb 10.7 L Hct 36.3 L MCV 85.4 D MCH 25.2 L MCHC 29.5 L RDW 23.4 H Plt Count 207 MPV 9.4 Sodium 132 L Potassium 4.9 Chloride 103 Carbon Dioxide 25 Anion Gap 4 BUN 28 H Creatinine 1.01 Estim Creat Clear Calc 44 Estimated GFR > 60 Glucose 192 H Calcium 8.2 L Blood Type A Positive Antibody Screen Positive Antibody Identification Anti-M TREVA, IgG Interpret Not Performed TREVA, Poly Interpret Neg TREVA, Complement Interp Not Performed Enhanced Crossmatch See Detail Quality VTE Prophylaxis VTE prophylaxis: mechanical ordered and pharmacologic ordered
[2025-08-31] MEDS: METOPROLOL SUCCINATE EXT REL 25 MG TABCR PO (10:23)
[2025-08-31] MEDS: ENOXAPARIN 40 MG/0.4 ML SYRINGE SUB-Q (10:24)
--- NOTE | 2025-08-31 13:57 | WPDANESPN ---
Anes - Prog Note Post-Op Date/Time: 08/31/25 13:57 Cardiovascular status: normal Respiratory status: normal Airway patency: baseline Mental status: baseline Vital Signs: Last Vital Signs Temp 36.7 C 08/31/25 09:58 Pulse 72 08/31/25 10:23 Resp 18 08/31/25 09:58 BP 113/76 08/31/25 09:58 Pulse Ox 97 08/31/25 09:58 O2 Del Method Room Air 08/30/25 18:15 O2 Flow Rate 8 08/30/25 17:00 Pain Score (VAS): 4 I/O: Intake & Output 08/30/25 08/31/25 08/31/25 23:59 07:59 15:59 Intake Total 1600 1500 600 Balance 1600 1500 600 Laboratory Tests 08/31/25 04:28 08/31/25 04:28 08/30/25 08/31/25 10:37 04:28 WBC 16.7 H RBC 4.25 L Hgb 10.7 L Hct 36.3 L MCV 85.4 D MCH 25.2 L MCHC 29.5 L RDW 23.4 H Plt Count 207 MPV 9.4 Sodium 132 L Potassium 4.9 Chloride 103 Carbon Dioxide 25 Anion Gap 4 BUN 28 H Creatinine 1.01 Estim Creat Clear Calc 44 Estimated GFR > 60 Glucose 192 H Calcium 8.2 L Blood Type A Positive Antibody Screen Positive Antibody Identification Anti-M Antigen Identification Pending TREVA, Poly Interpret Neg Enhanced Crossmatch See Detail Patient Feedback: Patient satisfied with anesthetic care.
[2025-09-01] MEDS: ACETAMINOPHEN 325 MG TABLET 650 MG PO ×3 (01:50→12:33)
[2025-09-01 04:09] VITALS: BP 136/63; PULSE 98; RESP 20; TEMP 36.2; O2SAT 94
[2025-09-01 05:44] LABS: Hematocrit 36.8 % (42.0-52.0); Hemoglobin 10.8 g/dL (14.0-18.0); Mean Corpuscular HGB Conc 29.3 g/dl (32-36); Mean Corpuscular Hemoglobin 25.0 pg (26-34); Mean Corpuscular Volume 85.2 fl (80-100); Platelet Count Result 198 k/mm3 (150-375); Red Blood Count 4.32 M/mm3 (4.6-6.20); White Blood Count 12.5 K/mm3 (4.5-10.0)
[2025-09-01 06:07] LABS: Anion Gap 4 mmol/L (4-12); Blood Urea Nitrogen 20 mg/dL (9-20); Calcium 8.0 mg/dL (8.4-10.2); Carbon Dioxide 26 mmol/L (22-30); Chloride 101 mmol/L (98-107); Estimated CRCL calculation 51 ml/min; Estimated Glomerular Filt Rate > 60; Glucose 112 mg/dL (65-110); Potassium 4.5 mmol/L (3.4-5.0); Sodium 131 mmol/L (137-145)
[2025-09-01 09:13] VITALS: PULSE 116
[2025-09-01] MEDS: ENOXAPARIN 40 MG/0.4 ML SYRINGE SUB-Q (09:13)
[2025-09-01] MEDS: METOPROLOL SUCCINATE EXT REL 25 MG TABCR PO (09:13)
--- NOTE | 2025-09-01 10:29 | P.PNGS_ITS ---
Progress Note: A&P Assessment and Plan (1) Hypertension: Code(s): I10 - Essential (primary) hypertension Status: Acute (2) Adenocarcinoma of cecum: Code(s): C18.0 - Malignant neoplasm of cecum Status: Acute Assessment and Plan: POD #2 s/p RAL right colectomy. Doing well postoperatively. Tolerating liquids well, reports small BMs, will advance to low residue diet. Jarrell out, urinating without difficulty. Ambulating, continue to encourage ambulation. Continue PRN pain control, limit narcotics as able. Continue to encourage IS use. Pathology pending. Discharge planning. Please see attending attestation for further plan and updates Subjective Subjective Date/Time Seen: 09/01/25 10:29 Interval history: NAEON. Ambulating, urinating, tolerating FLD, having small BMs. Had some subq emphysema along chest this am, on RA, denies vomiting, coughing, or SOB. VSS. Incisions CDI. Pain well controlled Review of Systems Review of Systems: All systems reviewed & are unremarkable except as noted in HPI and below Exam Const: General: cooperative, healthy appearing, no acute distress, alert and awake HENMT: Head: normocephalic and atraumatic Eyes: EOM: EOMs intact bilaterally Neck: Neck: normal visual inspection and no JVD Other: small amount of subq emphysema this am Chest: Other: subq emphysema along chest Resp: Other: symmetric expansion, no IWOB, on RA Cardio: Rate: regular rate Rhythm: regular rhythm GI: Other: soft, aTTP, ND, nonperitoneal, incisions CDI Skin: Other: Dry, intact Neuro: General: oriented to person, oriented to place and oriented to time Psych: Appearance: grossly normal Mental Status: mental status grossly no rmal Speech and movement: Normal speech and movement present Affect: normal affect Attitude: cooperative Thought process: Normal thought process present Thought content: Yes Normal thought content present Insight: Good insight present (Psych) Judgement: Good judgement present (Psych) Objective Data Vital Signs Vital Signs: Vital Signs - 24 hr 08/31/25 15:08 08/31/25 19:43 08/31/25 20:00 Temperature 97.8 F 96.9 F L Pulse Rate 86 79 Respiratory Rate 18 20 Blood Pressure 121/73 132/69 Pulse Oximetry 98 99 Oxygen Delivery Room Air 08/31/25 20:19 08/31/25 20:31 09/01/25 04:09 Temperature 96.9 F L 97.2 F L Pulse Rate 79 98 Respiratory Rate 20 20 Blood Pressure 132/69 136/63 Pulse Oximetry 99 99 94 Oxygen Delivery Room Air 09/01/25 09:13 Temperature Pulse Rate 116 H Respiratory Rate Blood Pressure Pulse Oximetry Oxygen Delivery Intake/Output Intake/Output: Intake & Output 08/29/25 08/30/25 08/31/25 09/01/25 23:59 23:59 23:59 23:59 Intake Total 1650 2700 770 Balance 1650 2700 770 Meds/Results Medications: Active Medications Generic Name Dose Route Start Last Admin Trade Name Freq PRN Reason Stop Dose Admin Acetaminophen 650 mg 08/30/25 18:00 09/01/25 05:45 Acetaminophen 325 Mg Tablet PO 650 mg Q6HR DONNA Administration Hydrocodone Bitart/Acetaminophen 1 tab 08/30/25 17:58 Hydrocodone/Acetaminophen (*Crx) 5-325 Mg Tablet PO Q4H PRN Pain Rated 4-6 Hydrocodone Bitart/Acetaminophen 1 tab 08/30/25 17:58 Hydrocodone/Acetaminophen (*Crx) 7.5-325 Mg Tablet PO Q4H PRN Pain Rated 7-10 Enoxaparin Sodium 40 mg 08/31/25 09:00 09/01/25 09:13 Enoxaparin 40 Mg/0.4 Ml Syringe SUB-Q 40 mg DAILY DONNA Administration Metoprolol Succinate 25 mg 08/31/25 09:00 09/01/25 09:13 Metoprolol Succinate Ext Rel 25 Mg Tabcr PO 25 mg DAILY DONNA Administration Morphine Sulfate 2 mg 08/30/25 17:58 Morphine Sulfate (*Crx) 4 Mg/Ml Inj IV PUSH Q2H PRN Breakthrough Pain Rated 4-6 or NPO Morphine Sulfate 4 mg 08/30/25 17:58 Morphine Sulfate (*Crx) 4 Mg/Ml Inj IV PUSH Q2H PRN Breakthrough Pain Rated 7-10 or NPO Naloxone HCl 0.1 mg 08/30/25 17:58 Naloxone Hcl 0.4 Mg/Ml Vial IV PUSH Q2M PRN Opiate Reversal Ondansetron HCl 4 mg 08/30/25 17:58 Ondansetron Inj 4 Mg/2 Ml Vial IV PUSH Q4H PRN Nausea And Vomiting Labs Labs: Laboratory Results - last 24 hr 08/30/25 09/01/25 10:37 05:28 WBC 12.5 H RBC 4.32 L Hgb 10.8 L Hct 36.8 L MCV 85.2 MCH 25.0 L MCHC 29.3 L RDW 23.5 H Plt Count 198 MPV 9.7 Sodium 131 L Potassium 4.5 Chloride 101 Carbon Dioxide 26 Anion Gap 4 BUN 20 Creatinine 0.86 Estim Creat Clear Calc 51 Estimated GFR > 60 Glucose 112 H Calcium 8.0 L Antigen Identification M Antigen - NEGATIVE
--- NOTE | 2025-09-01 12:58 | PM.DS ---
DS: Admitting Diagnosis Discharge Date 09/01/2025 Admitting Diagnosis Adenocarcinoma of the cecum, hypertension DS: Discharge Diagnosis Discharge Diagnosis (1) Adenocarcinoma of cecum: Code(s): C18.0 - Malignant neoplasm of cecum Status: Acute (2) Hypertension: Code(s): I10 - Essential (primary) hypertension Status: Acute DS: Summary Hospital Course Reason for hospitalization: Adenocarcinoma of the cecum Hospital Course: This is an 89-year-old man who presented with a recent finding of adenocarcinoma of the cecum. He had a prior history of chronic blood loss anemia and required a transfusion. He underwent colonoscopy on 07/31/2025 and a malignant-appearing mass was identified and biopsied in the cecum. Biopsies confirmed adenocarcinoma. Preoperative CT showed no evidence of metastatic spread, and preoperative CEA level was1.8. He underwent robotic assisted laparoscopic right hemicolectomy on 08/30/2025. 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 He remained hemodynamically stable postoperatively and diet was slowly advanced as tolerated. On postop day 1 he was tolerating a full liquid diet and was advanced to a solid diet. On postop day 2 he was tolerating the solid diet and bowel function was returning. He was up ambulating with minimal assistance. Pathology came back as a T2 N0 adenocarcinoma which is stage I based on NCCN guidelines. He was discharged on 09/01/2025. Status at Discharge Functional status at discharge: independent ambulation Overall status at discharge: patient is progressing back to baseline Time Spent with Patient Time attestation: Total time spent providing and/or coordinating discharge services: Time spent: Less than 30 minutes Exam Const: General: comfortable and no acute distress Orientation/consciousness: patient oriented x3 Resp: Effort & Inspection: normal respiratory effort Auscultation: clear to auscultation bilaterally GI: Inspection: non-distended and incision (Intact with glue) GI Palp: Yes Soft to palpation, No Tenderness to palpation present (GI) and No Guarding due to palpation present (GI) Auscultation: normal bowel sounds DS: Data Data Completed and Pending Completed studies during hospitalization: Pending at discharge 08/30/25 16:43 Surgical [PTH] Routine Final Diagnosis Large intestine, right colon, right hemicolectomy: - Adenocarcinoma, 2.5 cm - Fourteen lymph nodes negative for metastatic adenocarcinoma (0/14) - Two tubular adenomas, 1.0 and 0.6 cm - Margins negative for adenocarcinoma and tubular adenomas - Appendix with benign fibrous obliteration Reviewed and Electronically Signed by: Johnny Guzman MD 09/01/25 1030 Labs on day of discharge: Labs from last 24 hours 09/01/25 08/30/25 05:28 10:37 WBC 12.5 H RBC 4.32 L Hgb 10.8 L Hct 36.8 L MCV 85.2 MCH 25.0 L MCHC 29.3 L RDW 23.5 H Plt Count 198 MPV 9.7 Sodium 131 L Potassium 4.5 Chloride 101 Carbon Dioxide 26 Anion Gap 4 BUN 20 Creatinine 0.86 Estim Creat Clear Calc 51 Estimated GFR > 60 Glucose 112 H Calcium 8.0 L Antigen Identification M Antigen - NEGATIVE Discharge Plan Discharge Attending physician on discharge: Juan David Perry Consulting providers: Farhan Rm; Ines Hickey Discharging Clinician: Juan David Perry Patient Disposition: Home Activity: other - see discharge instructions Diet: low fiber Wound Care Instructions: other - see discharge instructions Discharge Instructions: Okay to shower, no bathing or soaking underwater for [address] in 3 days No lifting greater than 10 lb for the next 6 weeks Take OTC Tylenol as needed for pain, call office if needing stronger pain med May apply ice to incisions for 20 minutes at a time as needed for the 1st couple days at home Continue a soft regular diet for the next week, then no dietary restrictions Call office for increasing pain, fevers, or other problems with incisions or bowel movements Patient Instructions: Antibiotic Form Patient Language: Setswana Stand Alone Forms: General Discharge Information Follow-up/Referrals: uJan David Perry DO [Physician, General Surgery] - 09/21/25 1:15 pm Discharge Medications: Continued metoprolol succinate [Toprol XL] 25 mg tablet extended release 24 hr 25 mg PO DAILY Qty: 90 2RF Discontinued ferrous sulfate 325 mg (65 mg iron) tablet,delayed release (DR/EC) 325 mg PO DAILY Qty: 90 1RF metronidazole 500 mg tablet 500 mg PO .COMPLEX Qty: 3 0RF Rx Instructions: 500 mg orally at 1:00pm, 2:00pm, and 11:00pm the day before surgery; ciprofloxacin HCl 500 mg tablet 500 mg PO .COMPLEX Qty: 1 0RF Rx Instructions: 500 mg orally at 2:00pm the day before surgery; Date of admission: 08/30/25 17:58 Primary Care Provider: Vernon Matos Admitting Provider: Juan David Perry Attending physician on admission: Juan David Perry Condition: Stable
== END 2025-09-01 14:04 | disposition home or self-care (01) | DRG 330 ==
LOC: ANH3MED 18:01
PROVIDERS: Admitting Provider Surgery; PCP Physician Assistant; Visit Provider Surgery
PROC: 0DTF4ZZ Resection of Right Large Intestine, Percutaneous Endoscopic Approach (ICD-10-PCS; principal; 2025-08-30 12:00)
DX: C18.0 Malignant neoplasm of cecum (principal); Q43.3 Congenital malformations of intestinal fixation; I10 Essential (primary) hypertension; D64.9 Anemia, unspecified; I48.91 Unspecified atrial fibrillation; Z85.46 Personal history of malignant neoplasm of prostate
CPT/HCPCS: 36415; 80048; 85027; 86850; 86880; 86900; 86901; 86902; 86905; 86922; 88309; J0690; A9270; J1100; J1171; J1650; J1885; J2003; J2405; J2704; J3010; J7120

== ENCOUNTER 2025-09-04 08:56 | Observation (INO) | payer OTHER, SELFPAY ==
[2025-09-04] VITALS (15 sets, daily range): BP systolic 121–140; BP diastolic 64–101; PULSE 79–112; RESP 16–24; TEMP 36.1–36.7; O2SAT 95–100; BMI 23.8
--- NOTE | 2025-09-04 | ECHO_ITS ---
Patient Info Name: Mahin Wallace Age: 89 years : 1935 Gender: Male Ht: 27 in Wt: 355 lbs BSA: 2.00 m2 HR: 97 bpm BP: 122 / 96 mmHg Technical Quality: Fair Exam Date: 09/04/2025 2:49 PM Patient Status: O Admit Date: 09/04/2025 Exam Type: CA echo dop bubble study w con Complete two-dimentional, color flow and Doppler transthoracic echocardiogram is performed with agitated saline and with contrast to opacify the left ventricle and to improve the delineation of the left ventricle endocardial borders. Staff Referring Physician: Lizet Hung Crop Quantitative Geneticist: Cielo Yang Attending Provider: Blair Hazel Contrast/Agitated Saline Contrast/Ag. Saline: Agitated Saline Amount: 20.00 ml Existing IV Access: Yes IV Access Condition: patent with no signs of infiltration Contrast/Ag. Saline: Definity Amount: 2.00 ml Administered By: Cielo Yang Existing IV Access: Yes IV Access Condition: patent with no signs of infiltration Summary 1. The left ventricle is normal size. The systolic function is difficult to ascertain in this suboptimal study with poor acoustic windows. 2. The right ventricle is normal in size and systolic function. 3. The atrial septum is intact. There is no intracardiac [id number] shunt on agitated saline study. Left Ventricle The left ventricle is normal size. The systolic function is difficult to ascertain in this suboptimal study with poor acoustic windows. Right Ventricle The right ventricle is normal in size and systolic function. Atrial Septum The atrial septum is intact. There is no intracardiac [id number] shunt on agitated saline study. Aortic Valve The aortic valve is trileaflet and sclerotic. There is no aortic stenosis. There is trace aortic regurgitation. Pulmonic Valve The pulmonic valve is not well visualized. There is trace pulmonic valve regurgitation. Mitral Valve The mitral valve leaflets are sclerotic. There is trace mitral regurgitation. Tricuspid Valve The tricuspid valve is not well visualized. There is no tricuspid regurgitation. Pericardium/Pleural Pericardium is normal in appearance with no evidence for significant pericardial effusion. Inferior Vena Cava Inferior vena cava is not well visualized. Aorta The aortic root at the level of the sinus of Valsalva measures 3.3 cm in diameter. Left Ventricular Outflow Tract Name Value Normal LVOT 2D LVOT Diameter 2.0 cm LVOT Doppler LVOT Peak Velocity 52 cm/s LVOT Peak Gradient 1 mmHg LVOT Mean Gradient 1 mmHg LVOT VTI 9 cm LVOT VTI/AV VTI Ratio 0.8 LVOT Stroke Volume 29 ml LVOT CO 2.4 l/min LVOT CI 1.2 l/min/m2 Pulmonic Valve Name Value Normal RVOT Doppler RVOT Peak Velocity 67 cm/s RVOT Peak Gradient 2 mmHg PV Doppler PV Peak Velocity 93 cm/s PV Peak Gradient 3 mmHg Mitral Valve Name Value Normal MV Diastolic Function MV E Peak Velocity 65 cm/s MV A Peak Velocity 34 cm/s MV E/A 1.9 MV Decel Time (PW) 140 ms MV Annular TDI MV E/e' (Septal) 8.8 MV E/e' (Lateral) 9.0 MV E/e' (Average) 8.9 Tricuspid Valve Name Value Normal TV Regurgitation Doppler TR Peak Velocity 193 cm/s TR Peak Gradient 15 mmHg Estimated PAP/RSVP RA Pressure 10 mmHg <=5 PA Systolic Pressure 25 mmHg <36 RV Systolic Pressure 25 mmHg <36 TV Annular TDI TV Lateral Kelly s' Velocity 7.7 cm/s >=9.5 Aorta Name Value Normal Ascending Aorta Ao Root Diameter (MM) 2.6 cm Ao Root Diam Index (MM) 1.3 cm/m2 Aortic Valve Name Value Normal AV Doppler AV Peak Velocity 94 cm/s AV Peak Gradient 4 mmHg AV Mean Gradient 2 mmHg AV VTI 12 cm AV Area (Cont Eq VTI) 2.5 cm2 >=3.0 AV Area (Cont Eq Jean) 1.8 cm2 AV DI (Jean) 0.55 AV Regurgitation 2D LVOT Area 3.3 cm2 Ventricles Name Value Normal LV Dimensions 2D/MM IVS Diastolic Thickness (2D) 0.9 cm 0.6-1.0 LVID Diastole (2D) 5.6 cm 4.2-5.8 LVIW Diastolic Thickness (2D) 0.9 cm 0.6-1.0 LVID Systole (2D) 3.9 cm 2.5-4.0 LVOT Diameter 2.0 cm LV Mass (2D Cubed) 180.35 g 88.00-224.00 LV Mass Index (2D Cubed) 90 g/m2 49-115 Relative Wall Thickness (2D) 0.31 <=0.42 LV Fractional Shortening/Ejection Fraction 2D/MM LV Fractional Shortening (2D) 30 % 25-43 LV EF (2D Teichholz) 57 % Atria Name Value Normal LA Dimensions LA Dimension (MM) 5.8 cm 3.0-4.0 Report Signatures
--- NOTE | ~2025-09-04 | XR_ITS ---
Examination: XR chest 1V portable Clinical History: L arm weakness Comparison: None Technique: Portable AP Findings: Heart size normal. Lungs clear. No acute bony abnormality. Subcutaneous emphysema left lateral chest wall. IMPRESSION: 1. No acute cardiopulmonary findings given portable technique. 2. Subcutaneous emphysema left lateral chest wall. Trauma? Reviewed, dictated and finalized at location R. EANT MISSILE CREWMAN
--- NOTE | ~2025-09-04 | CT_ITS ---
EXAMINATION: CT abdomen pelvis w con DATE: 09/04/2025 13:37 INDICATION: 89-year-old male with history of bruising of the abdomen. The abdominal bruising and subcutaneous emphysema started spontaneously. No history of trauma. Recent history of colon surgery. TECHNIQUE: Computed tomography (CT) of the abdomen and pelvis was performed without intravenous contrast. Automated exposure control and iterative reconstruction technique were employed. The dose-length product was 373.69 mGy-cm. COMPARISON: Previous CT abdomen and pelvis dated 08/14/2025. FINDINGS: Extensive subcutaneous emphysema of the lower anterior chest wall and upper abdominal wall is noted extending to the left lateral aspect. No evidence of pneumothorax is noted at the lower lung yeh. There is no evidence of pneumoperitoneum. Postoperative changes of the bowel are noted with mildly distended loops of small bowel measuring up to 30 mm in diameter. No free fluid in the peritoneal cavity. No acute abnormalities of the kidneys. No focal lesions of the urinary bladder. No acute abnormalities of the lumbar spine and pelvic bones. Degenerative arthritis of the hip joints are significant degree on both sides left more than the right. IMPRESSION: 1. 1. Extensive subcutaneous emphysema of the lower anterior and left lateral chest wall and upper abdominal wall. 2. No evidence of pneumothorax at the lung bases. No evidence of pneumoperitoneum. 3. Mildly dilated loops of small bowel measuring up to 30 mm in diameter. 4 above mentioned findings were discussed with the admitting physician at 2:16 PM. Reviewed, dictated and finalized at location T. GHT FLAGMAN IMPRESSION: 1. 1. Extensive subcutaneous emphysema of the lower anterior and left lateral ches t wall and upper abdominal wall. 2. No evidence of pneumothorax at the lung bases. No evidence of pneumoperitone um. 3. Mildly dilated loops of small bowel measuring up to 30 mm in diameter. 4 above mentioned findings were discussed with the admitting physician at 2:16 PM.
--- NOTE | ~2025-09-04 | MR_ITS ---
EXAMINATION: MR brain/brain stem wo con DATE: 09/05/2025 15:55 INDICATION: Left upper extremity ataxia TECHNIQUE: Magnetic resonance imaging (MRI) of the brain and brainstem was performed without intravenous contrast. Sequences included sagittal and axial T1-weighted SE, axial diffusion-weighted FS SE, axial 3D SWAN, axial T2-weighted FLAIR, and axial T2-weighted FSE. Apparent diffusion coefficient (ADC) maps were created. COMPARISON: Head CT and CT angiogram dated 09/04/2025 FINDINGS: Small region of restricted diffusion consistent with acute infarct in the posterior right frontal lobe at the hand knob of the precentral motor cortex. There is a small old lacunar infarct at the left cerebellar hemisphere. No intracranial hemorrhage or abnormal intracranial mass lesion. There are scat tered areas of nonspecific increased T2-weighted signal intensity in the cerebral white matter, predominantly involving the deep and periventricular white matter which is within normal limits for age and likely sequela of chronic small vessel ischemic disease. There are no intraparenchymal signal abnor malities seen on the other pulse sequences. The ventricles are symmetric and normal in size. There are no abnormal extra-axial fluid collections. Flow voids are seen in the cerebral arteries on the T2-weighted sequences consistent with their expected patency. Changes of bilateral intraocular lens replacement. Visualized orbits and soft tissues are unremarkable. IMPRESSION: 1. Small acute infarct involving the hand knob of the right precentral motor cortex. 2. Small old lacunar infarct at the left cerebellar hemisphere. Reviewed, dictated and finalized at location A. IER LOADER IMPRESSION: 1. Small acute infarct involving the hand knob of the right precentral motor co rtex. 2. Small old lacunar infarct at the left cerebellar hemisphere.
--- NOTE | ~2025-09-04 | CT_ITS ---
EXAM/PROCEDURE: CTA brain carotid HISTORY: L arm weakness COMPARISON: None available. TECHNIQUE: IV contrast-enhanced CT angiography of the head and neck FINDINGS: Three-vessel left-sided arch with both common carotid arteries patent. Less than 25% stenosis in the proximal ICAs with calcified plaque disease left worse than right. The ICAs otherwise are fully patent within the cervical portion. Vertebral arteries are also patent throughout with right vertebral artery dominant. Within the intracranial circulation, moderately severe diffuse atherosclerotic disease involving both MCAs. No critical stenosis or occlusion seen in the anterior and middle cerebral arteries or the terminal carotid arteries. The graft basilar artery and V4 vertebral segments and career professional are patent. origin of the right MORNING NANNY. No large acute ischemic event seen. No mass, mass effect, dural sinus thrombosis, AVM or abnormal enhancing lesions or masses seen. In the visualized portions of the chest, extensive emphysematous changes in the subcutaneous soft tissues and extending into the lateral and anterior chest wall also present. IMPRESSION: 1. Moderately severe scattered atherosclerotic disease but no critical stenosis or occlusion seen. 2. Extensive emphysematous changes in the extrathoracic soft tissues on the left side. Correlate with clinical presentation and exam for additional imaging of the chest as clinically appropriate. Reviewed, dictated and finalized at location A. NG I INSTRUCTOR IMPRESSION: 1. Moderately severe scattered atherosclerotic disease but no critical stenosis or occlusion seen. 2. Extensive emphysematous changes in the extrathoracic soft tissues on the lef t side. Correlate with clinical presentation and exam for additional imaging of the chest as clinically appropriate.
--- NOTE | 2025-09-04 09:03 | ECG_ITS ---
Test Date: 2025-09-04 09:11:19 Measurements Intervals [place] Rate: 97 P: 0 FL: 0 QRS: 85 QRSD: 147 T: -56 QT: 367 QTc: 468 Interpretive Statements ATRIAL FIBRILLATION RIGHT BUNDLE BRANCH BLOCK Electronically Signed On 09-04-2025 11:24:57 [employer] by Nikita Smiley D.O
--- NOTE | 2025-09-04 09:17 | ED.WEAKNESS ---
HPI - Weakness General Chief complaint: Weakness <MEGHNA Ocampo Last Filed: 09/04/25 19:11> Stated complaint: L arm weakness <MEGHNA Ocampo Last Filed: 09/04/25 19:11> Time Seen by Provider: 09/04/25 09:04 <MEGHNA Ocampo Last Filed: 09/04/25 19:11> Source: patient <MEGHNA Ocampo Last Filed: 09/04/25 19:11> Mode of arrival: EMS <MEGHNA Ocampo Last Filed: 09/04/25 19:11> Limitations: no limitations <MEGHNA Ocampo Last Filed: 09/04/25 19:11> History of Present Illness HPI Narrative: Patient is an 89 y/o male, with PMH of colon CA, AFIB, who presents to the ED with c/o L arm weakness. Patient reports he woke up this morning and felt normal. He did his typical morning routine, shaved his face and brushed his teeth. He was then walking throughout his house at 730am when he noticed something hitting his L leg. He looked down and realized it was his L arm hitting his leg. He states his L arm felt weak. He tried eating breakfast and states his L hand felt weak and like it would not perform the tasks he wanted. He then prompted here for further evaluation. Patient denied having any weakness in his L leg. Denies any numbness/tingling of extremities. Denies vision changes. Denies chest or abdominal pain. Patient underwent right hemicolectomy by Dr Perry last Thursday for colon tumor. He reports hx of AFIB but reports he has been off his Eliquis for approx 6 weeks d/t GI bleeding. <MEGHNA Ocampo Last Filed: 09/04/25 19:11> Related Data Allergies/Adverse reactions: Allergies Allergy/AdvReac Type Severity Reaction Status Date / Time No Known Allergies Allergy Unknown Verified 09/04/25 13:19 <MEGHNA Ocampo Last Filed: 09/04/25 19:11> Review of Systems Review of Systems: All systems reviewed & are unremarkable except as noted in HPI. <Lizet Hung PA-C - Last Filed: 09/04/25 19:11> All systems reviewed & are unremarkable except as noted in HPI and below <Lizet Hung PA-C - Last Filed: 09/04/25 19:11> PMFSH Past Medical History Medical History: Medical History Cecum mass Anemia Atrial fibrillation Moderate mitral regurgitation Cardiomyopathy H/O prostate cancer Mild tricuspid regurgitation by prior echocardiogram Mitral valve regurgitation <Lizet Hung PA-C - Last Filed: 09/04/25 19:11> Family History Family History: Family History Father Cerebrovascular accident Mother Family history of coronary artery disease Other Family history of malignant neoplasm <Lizet Hung PA-C - Last Filed: 09/04/25 19:11> Social History Social History: Social History Social History: Smoking status: Former smoker Second hand tobacco smoke exposure: No Alcohol intake: never Substance use: never Substance use type: does not use Lack of Transportation: No Lack of Food: Never True Current Housing: I Have Housing Concerned About Future Housing: No Difficulty Paying Gas/Electric Bills: No Difficulty Paying for Meds: No Currently Unemployed: No Education: Bachelor's Degree Difficulty w/ Childcare or Family Care: No Living arrangements: with family Occupation/Education: retired Gender identity (if verbalized by the patient): Male Spiritual care concerns: No <Lizet Hung PA-C - Last Filed: 09/04/25 19:11> Exam Narrative: GENERAL: Well appearing, well-nourished, non-toxic, in no acute distress. HEAD: Normocephalic, atraumatic. EYES: PERRL/EOMI, conjunctivae clear bilaterally. No nystagmus. No appreciable visual field deficits NECK: Supple. No meningeal signs. RESPIRATORY: Airway patent, respirations nonlabored. Clear to auscultation bilaterally, no rales, rhonchi, wheezing. CARDIOVASCULAR: Regular rate and rhythm without murmurs, rubs, or gallops. Peripheral pulses 2+ and equal bilaterally. ABDOMINAL: Soft, nondistended. Normoactive BS. No significant focal tenderness. Bruising and several incision sites to left lower abdomen. Incisions are intact. MUSCULOSKELETAL: Moves all extremities. No gross deformities. SKIN: Warm, dry, normal color. No rashes. NEURO: A&O X3. Speech clear. Follows commands. CN II-XII intact. Sensation grossly intact. No ataxic movements. Strength 4/5 in left upper extremity compared to R. Slight weakness of L extract puller compared to R. Pronator drift of LUE, some effort, does not fall to bed. [id number] testing intact and equal mariela. [id number]-[id number] testing intact RUE, noticeable discoordination of LUE with testing. PSYCHIATRIC: Appropriate mood and affect. Normal interaction. <Lizet Hung PA-C - Last Filed: 09/04/25 19:11> Course MANAGER EDUCATION/PA Physician Supervision This visit was performed by both a physician and an APC. I performed all aspects of the MDM as documented. <Allan Mccall MD - Last Filed: 09/04/25 18:40> Vital Signs Vital signs: Vital Signs Temperature 98.1 F 09/04/25 08:57 Pulse Rate 109 H 09/04/25 08:57 Respiratory Rate 20 09/04/25 08:57 Pulse Oximetry 100 09/04/25 08:57 Oxygen Delivery Room Air 09/04/25 08:57 Temperature 96.9 F L 09/04/25 14:00 Pulse Rate 97 09/04/25 16:00 Respiratory Rate 17 09/04/25 14:00 Blood Pressure 134/82 09/04/25 14:00 Pulse Oximetry 98 09/04/25 14:00 Oxygen Delivery Room Air 09/04/25 08:57 <Lizet Hung PA-C - Last Filed: 09/04/25 19:11> Vital Signs Temperature 98.1 F 09/04/25 08:57 Pulse Rate 109 H 09/04/25 08:57 Respiratory Rate 20 09/04/25 08:57 Pulse Oximetry 100 09/04/25 08:57 Oxygen Delivery Room Air 09/04/25 08:57 Temperature 96.9 F L 09/04/25 14:00 Pulse Rate 97 09/04/25 16:00 Respiratory Rate 17 09/04/25 14:00 Blood Pressure 134/82 09/04/25 14:00 Pulse Oximetry 98 09/04/25 14:00 Oxygen Delivery Room Air 09/04/25 08:57 <Allan Mccall MD - Last Filed: 09/04/25 18:40> MDM - Weakness MDM Narrative Medical decision making narrative: NIH 1 Last known well at 7:30 a.m. Right hemicolectomy last Thursday CTA brain and carotids: Moderately severe scattered atherosclerotic disease but no critical stenosis or occlusion seen. Has been off Eliquis for 6 weeks, hx of AFIB EKG with atrial fibrillation, RBBB, no significant concerning ST changes. Appears similar to previous EKG earlier this month Basic laboratory studies fairly unremarkable. Hemoglobin 12.1. Stable electrolytes. Possible mild dehydration with elevated creatinine. Fluids ongoing. Troponin undetectable. -Cal I did discuss the case with the stroke attending at [facility] (Dr Patel) and they felt that the patient was not a candidate for TNK due to recent surgery. They also felt the patient would not be a candidate for thrombolysis due to the patient's low NIH score. They recommended the patient stay at our facility and have the MRI. I did discuss the case with our neurologist and he was comfortable the plan for admission and MRI RG- Discussed case with Dr. Hazel, hospitalist, accepted patient for admission. Patient and family are in agreement with plan and need for admission. Discussed case with the General surgery team regarding patient restarting Eliquis since surgery. They will consult. Requested CT of the abdomen/pelvis <Lizet Hung PA-C - Last Filed: 09/04/25 19:11> NIH 1 Last known well at 7:30 a.m. CTA brain and carotids: Moderately severe scattered atherosclerotic disease but no critical stenosis or occlusion seen. Has been off Eliquis for 6 weeks Right hemicolectomy last Thursday EKG with atrial fibrillation, RBBB, no significant concerning ST changes. Appears similar to previous EKG earlier this month Basic laboratory studies fairly unremarkable. Hemoglobin 12.1. Stable electrolytes. Possible mild dehydration with elevated creatinine. Fluids ongoing. Troponin undetectable. Discussed case with Dr. Hazel, hospitalist, accepted patient for admission -Cal I did discuss the case with the stroke attending at [facility] (Dr Patel) and they felt that the patient was not a candidate for TNK due to recent surgery. They also felt the patient would not be a candidate for thrombolysis due to the patient's low NIH score. They recommended the patient stay at our facility and have the MRI. I did discuss the case with our neurologist and he was comfortable the plan for admission and MRI <Allan Mccall MD - Last Filed: 09/04/25 18:40> Medical Records Attestation: I reviewed the patient's medical records. <Lizet Hung PA-C - Last Filed: 09/04/25 19:11> Lab Data Attestation: I reviewed the patient's lab results. <Lizet Hung PA-C - Last Filed: 09/04/25 19:11> Result diagrams: 09/04/25 09:12 09/04/25 10:23 <Lizet Hung PA-C - Last Filed: 09/04/25 19:11> Labs: Lab Results 09/04/25 09/04/25 09/04/25 Range/Units 09:05 09:12 10:23 WBC 9.4 (4.5-10.0) K/mm3 RBC 4.79 (4.6-6.20) M/mm3 Hgb 12.1 L (14.0-18.0) g/dL Hct 39.8 L (42.0-52.0) % MCV 83.1 (80-100) fl MCH 25.3 L (26-34) pg MCHC 30.4 L (32-36) g/dl RDW 23.2 H (11.5-14.5) % Plt Count 267 (150-375) k/mm3 MPV 9.1 (7.4-10.4) fl Immature Gran % (Auto) 0.5 (0-0.5) % Neut % (Auto) 77.3 H (45.5-73.1) % Lymph % (Auto) 12.7 L (18.3-44.2) % Evans % (Auto) 7.8 (2.6-8.5) % Eos % (Auto) 1.4 (0-4.4) % Baso % (Auto) 0.3 (0.2-1.2) % Lymph # (Auto) 1.20 (0.9-3.2) K/mm3 Evans # (Auto) 0.7 H (0.1-0.6) K/mm3 Eos # (Auto) 0.1 (0-0.3) K/mm3 Baso # (Auto) 0.0 (0.0-0.1) K/mm3 Abs Immat Gran (auto) 0.05 H (0.00-0.031) K/mm3 Absolute Neuts (auto) 7.3 H (1.3-6.7) K/mm3 Absolute Nucleated RBC 0.000 (0.0-0.012) K/mm3 Band Neutrophils % Not Reportable Nucleated RBC % 0.0 (0.0-0.2) % Platelet Estimate Adequate (Adequate) Microcytosis 1+ (NORMAL) Ovalocytes Occasional [place] Cells 2+ Schistocytes None seen PT 16.7 H (11.1-14.7) Seconds INR 1.3 APTT 30.2 (22.3-36.8) Seconds Sodium 133 L (137-145) mmol/L Potassium 4.4 (3.4-5.0) mmol/L Chloride 103 (98-107) mmol/L Carbon Dioxide 25 (22-30) mmol/L Anion Gap 5 (4-12) mmol/L BUN 33 H D (9-20) mg/dL Creatinine 1.28 1.50 (0.7-1.3) mg/dL Estim Creat Clear Calc 35 30 ml/min Estimated GFR 53 L 44 L (59 - ) Glucose 100 (65-110) mg/dL POC Capillary Glucose 116 H (65-105) mg/dl Calcium 8.5 (8.4-10.2) mg/dL Total Bilirubin 0.9 (0.2-1.3) mg/dL AST 37 (17-59) U/L ALT 26 (6-50) U/L Alkaline Phosphatase 58 (38-126) U/L Troponin I < 0.012 (0.000-0.034) ng/mL Total Protein 6.3 (6.3-8.2) g/dL Albumin 3.3 L (3.5-5.1) g/dL <Lizet Hung PA-C - Last Filed: 09/04/25 19:11> Lab Results 09/04/25 09/04/25 09/04/25 Range/Units 09:05 09:12 10:23 WBC 9.4 (4.5-10.0) K/mm3 RBC 4.79 (4.6-6.20) M/mm3 Hgb 12.1 L (14.0-18.0) g/dL Hct 39.8 L (42.0-52.0) % MCV 83.1 (80-100) fl MCH 25.3 L (26-34) pg MCHC 30.4 L (32-36) g/dl RDW 23.2 H (11.5-14.5) % Plt Count 267 (150-375) k/mm3 MPV 9.1 (7.4-10.4) fl Immature Gran % (Auto) 0.5 (0-0.5) % Neut % (Auto) 77.3 H (45.5-73.1) % Lymph % (Auto) 12.7 L (18.3-44.2) % Evans % (Auto) 7.8 (2.6-8.5) % Eos % (Auto) 1.4 (0-4.4) % Baso % (Auto) 0.3 (0.2-1.2) % Lymph # (Auto) 1.20 (0.9-3.2) K/mm3 Evans # (Auto) 0.7 H (0.1-0.6) K/mm3 Eos # (Auto) 0.1 (0-0.3) K/mm3 Baso # (Auto) 0.0 (0.0-0.1) K/mm3 Abs Immat Gran (auto) 0.05 H (0.00-0.031) K/mm3 Absolute Neuts (auto) 7.3 H (1.3-6.7) K/mm3 Absolute Nucleated RBC 0.000 (0.0-0.012) K/mm3 Band Neutrophils % Not Reportable Nucleated RBC % 0.0 (0.0-0.2) % Platelet Estimate Adequate (Adequate) Microcytosis 1+ (NORMAL) Ovalocytes Occasional [place] Cells 2+ Schistocytes None seen PT 16.7 H (11.1-14.7) Seconds INR 1.3 APTT 30.2 (22.3-36.8) Seconds Sodium 133 L (137-145) mmol/L Potassium 4.4 (3.4-5.0) mmol/L Chloride 103 (98-107) mmol/L Carbon Dioxide 25 (22-30) mmol/L Anion Gap 5 (4-12) mmol/L BUN 33 H D (9-20) mg/dL Creatinine 1.28 1.50 (0.7-1.3) mg/dL Estim Creat Clear Calc 35 30 ml/min Estimated GFR 53 L 44 L (59 - ) Glucose 100 (65-110) mg/dL POC Capillary Glucose 116 H (65-105) mg/dl Calcium 8.5 (8.4-10.2) mg/dL Total Bilirubin 0.9 (0.2-1.3) mg/dL AST 37 (17-59) U/L ALT 26 (6-50) U/L Alkaline Phosphatase 58 (38-126) U/L Troponin I < 0.012 (0.000-0.034) ng/mL Total Protein 6.3 (6.3-8.2) g/dL Albumin 3.3 L (3.5-5.1) g/dL <Allan Mccall MD - Last Filed: 09/04/25 18:40> Imaging Data Attestation: I personally reviewed and interpreted this imaging study as follows: <Lizet Hung PA-C - Last Filed: 09/04/25 19:11> Radiologist's impression: ITS Impressions Head/Neck CTA 09/04/25 09:34 IMPRESSION: 1. Moderately severe scattered atherosclerotic disease but no critical stenosis or occlusion seen. 2. Extensive emphysematous changes in the extrathoracic soft tissues on the left side. Correlate with clinical presentation and exam for additional imaging of the chest as clinically appropriate. Chest X-Ray 09/04/25 09:50 IMPRESSION: 1. No acute cardiopulmonary findings given portable technique. 2. Subcutaneous emphysema left lateral chest wall. Trauma? <Lizet Hung PA-C - Last Filed: 09/04/25 19:11> ECG Data EKG #1: Attestation: I personally reviewed and interpreted this ECG as follows: <Lizet Hung PA-C - Last Filed: 09/04/25 19:11> ECG completion date: 09/04/25 <Lizet Hung PA-C - Last Filed: 09/04/25 19:11> ECG completion time: 09:11 <Lizet Hung PA-C - Last Filed: 09/04/25 19:11> EKG Interpretation: tachycardia (97), atrial fibrillation, non-specific ST changes and RBBB <Lizet Hung PA-C - Last Filed: 09/04/25 19:11> Discharge Plan Discharge Clinical Impression: Left arm weakness, Acute CVA (cerebrovascular accident), Chronic atrial fibrillation <Lizet Hung PA-C - Last Filed: 09/04/25 19:11> Patient Disposition: Still a Patient <Lizet Hung PA-C - Last Filed: 09/04/25 19:11> Condition: Serious <Lizet Hung PA-C - Last Filed: 09/04/25 19:11> Quality Stroke Date of last known normal: 09/04/25 <Lizet Hung PA-C - Last Filed: 09/04/25 19:11> Time of last known normal: 07:30 <Lizet Hung PA-C - Last Filed: 09/04/25 19:11> Stroke Scale Stroke Scale 1: Stroke scale date:: 09/04/25 <Lizet Hung PA-C - Last Filed: 09/04/25 19:11> Stroke scale time:: 09:15 <Lizet Hung PA-C - Last Filed: 09/04/25 19:11> 1a Level of consciousness: alert-0 <Lizet Hung PA-C - Last Filed: 09/04/25 19:11> 1b Level of consciousness questions: answers both correctly-0 <Lizet Hung PA-C - Last Filed: 09/04/25 19:11> 1c Level of consciousness commands: obeys both correctly-0 <MEGHNA Ocampo Last Filed: 09/04/25 19:11> 2 Best gaze: normal-0 <Lizet Hung PA-C - Last Filed: 09/04/25 19:11> 3 Visual: no visual loss-0 <Lizet Hung PA-C - Last Filed: 09/04/25 19:11> 4 Facial palsy: normal-0 <Lizet Hung PA-C - Last Filed: 09/04/25 19:11> 5a Motor: left arm: drift-1 <Lizet Hung PA-C - Last Filed: 09/04/25 19:11> 5b Motor: right arm: no drift-0 <Lizet Hung PA-C - Last Filed: 09/04/25 19:11> 6a Motor: left leg: no drift-0 <Lizet Hung PA-C - Last Filed: 09/04/25 19:11> 6b Motor: right leg: no drift-0 <Lizet Hung PA-C - Last Filed: 09/04/25 19:11> 7 Limb ataxia: absent-0 <Lizet Hung PA-C - Last Filed: 09/04/25 19:11> 8 Sensory: normal-0 <Lizet Hung PA-C - Last Filed: 09/04/25 19:11> 9 Best language: no aphasia-0 <MEGHNA Ocampo Last Filed: 09/04/25 19:11> 10 Dysarthria: normal-0 <Lizet Hung PA-C - Last Filed: 09/04/25 19:11> 11 Extinction and inattention: no abnormality-0 <MEGHNA Ocampo Last Filed: 09/04/25 19:11> Level:: 1 <Lizet Hung PA-C - Last Filed: 09/04/25 19:11> 1 <Allan Mccall MD - Last Filed: 09/04/25 18:40>
[2025-09-04 09:18] LABS: Hematocrit 39.8 % (42.0-52.0); Hemoglobin 12.1 g/dL (14.0-18.0); Immature Granulocyte Percent A 0.5 % (0-0.5); Lymphocytes Absolute Auto 1.20 K/mm3 (0.9-3.2); Mean Corpuscular HGB Conc 30.4 g/dl (32-36); Mean Corpuscular Hemoglobin 25.3 pg (26-34); Mean Corpuscular Volume 83.1 fl (80-100); Nucleated Red Blood Cells Absolute Auto 0.000 K/mm3 (0.0-0.012); Nucleated Red Blood Cells Perc 0.0 % (0.0-0.2); Platelet Count Result 267 k/mm3 (150-375); Red Blood Count 4.79 M/mm3 (4.6-6.20); White Blood Count 9.4 K/mm3 (4.5-10.0)
[2025-09-04 09:24] LABS: Estimated CRCL calculation 30 ml/min; Estimated Glomerular Filt Rate 44
--- NOTE | 2025-09-04 09:27 | ECG_ITS ---
Test Date: 2025-09-04 09:36:45 Measurements Intervals Dinosaur Rate: 100 P: 0 NV: 0 QRS: 91 QRSD: 158 T: -36 QT: 368 QTc: 476 Interpretive Statements ATRIAL FIBRILLATION WITH RAPID VENTRICULAR RESPONSE RIGHT BUNDLE BRANCH BLOCK Electronically Signed On 09-04-2025 11:25:06 ELECTRICAL LABORATORY TECHNICIAN by Nikita Smiley D.O
[2025-09-04 09:29] LABS: Alanine Aminotransferase 26 U/L (6-50); Albumin Level 3.3 g/dL (3.5-5.1); Alkaline Phosphatase 58 U/L (38-126); Anion Gap 5 mmol/L (4-12); Aspartate Amino Transferase 37 U/L (17-59); Bilirubin,Total 0.9 mg/dL (0.2-1.3); Blood Urea Nitrogen 33 mg/dL (9-20); Calcium 8.5 mg/dL (8.4-10.2); Carbon Dioxide 25 mmol/L (22-30); Chloride 103 mmol/L (98-107); Estimated CRCL calculation 35 ml/min; Estimated Glomerular Filt Rate 53; Glucose 100 mg/dL (65-110); Potassium 4.4 mmol/L (3.4-5.0); Sodium 133 mmol/L (137-145); Total Protein 6.3 g/dL (6.3-8.2)
[2025-09-04 09:31] LABS: INR 1.3; Prothrombin Time 16.7 Seconds (11.1-14.7)
[2025-09-04 09:32] LABS: Partial Thromboplastin Time 30.2 Seconds (22.3-36.8)
[2025-09-04 09:40] LABS: Microcytosis 1+ (NORMAL); Troponin I < 0.012 ng/mL (0.000-0.034)
[2025-09-04 09:41] LABS: Burr Cells 2+; Ovalocytes Occasional; Schistocytes None Seen
[2025-09-04] MEDS: SODIUM CHLORIDE 0.9% IV 1,000 ML 500 ML IV CONT (11:43)
--- NOTE | 2025-09-04 11:45 | P.HP_ITS ---
H&P: HPI History of Present Illness Date/Time: 09/04/25 11:45 Chief Complaint: - left upper extremity weakness Narrative: Patient is an 89-year-old male with past medical history of atrial fibrillation not currently on anticoagulation, adenocarcinoma of the colon s/p bowel resection 08/30/25. Patient states that he was in his normal state of health when he went to bed last night. He woke this morning and was going about his normal daily activities 1 around 730 this morning he noticed that his arm started to feel clumsy and somewhat numb. He denied any associated headache, dizziness, visual disturbance, facial droop, speech disturbance, leg weakness, difficulty ambulating. Patient has not been on his Eliquis for 6-8 weeks due to concern for GI bleed in setting of known adenocarcinoma of the colon. He was just discharged from the hospital s/p bowel resection on 09/01 and states he was not given instructions on when to restart Eliquis, but had plan to follow-up with his mechanical design engineer facilities within the next month. He denies any further blood in his stool. Denies recent illness, fever, chills, cough, shortness of breath, chest pain. Does have some mild constipation since surgery, but passing flatus and denies significant abdominal pain. He lives at home with his normally ambulates independently. In the ED, CTA head and neck showed moderately severe scattered atherosclerotic disease, but no critical stenosis or occlusion. Also noted extensive emphysematous change in the extrathoracic soft tissues on the left. Chest x-ray showed no acute process, again noted subcutaneous emphysema of the left lateral chest wall. Hemoglobin 12.1, sodium 133, BUN 33, creatinine 1.5. Patient received 500 cc IV fluid bolus. Neurology was consulted from the ED. Patient will be admitted for further stroke workup including MRI brain and echocardiogram. General surgery was also notified of patient's admission and evaluated patient in the ED - recommended CT abdomen/pelvis before restarting Eliquis. Review of Systems Review of Systems: All systems reviewed & are unremarkable except as noted in HPI and below PMFSH Past Medical History Medical History (Updated 09/04/25 @ 13:34 by GAVINO Marks) Cecum mass Anemia Atrial fibrillation Moderate mitral regurgitation Cardiomyopathy H/O prostate cancer Mild tricuspid regurgitation by prior echocardiogram Mitral valve regurgitation Family History Family History Father Cerebrovascular accident Mother Family history of coronary artery disease Other Family history of malignant neoplasm Social History Social History Social History: Smoking status: Former smoker Second hand tobacco smoke exposure: No Alcohol intake: never Substance use: never Substance use type: does not use Lack of Transportation: No Lack of Food: Never True Current Housing: I Have Housing Concerned About Future Housing: No Difficulty Paying Gas/Electric Bills: No Difficulty Paying for Meds: No Currently Unemployed: No Education: Bachelor's Degree Difficulty w/ Childcare or Family Care: No Living arrangements: with family Occupation/Education: retired Gender identity (if verbalized by the patient): Male Spiritual care concerns: No Meds Home Medications and Allergies Home Medications ?Medication ?Instructions ?Recorded ?Confirmed ?Type metoprolol succinate 25 mg 25 mg PO DAILY #90 tabs 09/04/25 Rx tablet,extended release 24 hr (Toprol XL) Allergies Allergy/AdvReac Type Severity Reaction Status Date / Time No Known Allergies Allergy Unknown Verified 09/04/25 13:19 Vital Signs Vital Signs - 24 hr 09/04/25 08:57 09/04/25 09:05 09/04/25 09:30 Temperature 98.1 F Pulse Rate 109 H 105 H 105 H Respiratory Rate 20 20 Blood Pressure 139/64 Pulse Oximetry 100 95 Oxygen Delivery Room Air 09/04/25 09:39 Temperature Pulse Rate 112 H Respiratory Rate 18 Blood Pressure 140/81 Pulse Oximetry 98 Oxygen Delivery Exam Narrative: General: NAD Eyes: EOMI ENT: neck supple Cardiovascular: Regular rate and rhythm, no palpable subcutaneous emphysema Respiratory: Clear to auscultation, respirations even and unlabored on RA Gastrointestinal: Soft, non tender, surgical incisions well approximated without surrounding erythema. Moderate amount of bruising to the lower abdomen without tenderness palpation. Bowel sounds active. Genitourinary: no suprapubic tenderness Musculoskeletal: No edema Skin: warm, dry Neuro: Alert and oriented x4. Cranial nerves II-XII intact. Face symmetric. Speech clear. Sensation to light touch intact face, BUE/BLEs. Positive left upper extremity ataxia. Slight left upper extremity drift. Strength 5/5 in bilateral lower extremities. Psych: Mood appropriate H&P: Results Labs Labs: Short CBC 09/04/25 Range/Units 09:12 WBC 9.4 (4.5-10.0) K/mm3 Hgb 12.1 L (14.0-18.0) g/dL Hct 39.8 L (42.0-52.0) % Plt Count 267 (150-375) k/mm3 BMP 09/04/25 09/04/25 09:12 10:23 Sodium 133 L Potassium 4.4 Chloride 103 Carbon Dioxide 25 BUN 33 H D Creatinine 1.28 1.50 Glucose 100 Calcium 8.5 Cardiac Enzymes 09/04/25 Range/Units 09:12 Troponin I < 0.012 (0.000-0.034) ng/mL Liver Function 09/04/25 Range/Units 09:12 Total Bilirubin 0.9 (0.2-1.3) mg/dL AST 37 (17-59) U/L ALT 26 (6-50) U/L Alkaline Phosphatase 58 (38-126) U/L Albumin 3.3 L (3.5-5.1) g/dL Assessment and Plan Assessment and plan (1) Stroke-like symptoms: Code(s): R29.90 - Unspecified symptoms and signs involving the nervous system Status: Acute Assessment and Plan: - presented with LUE ataxia. LKW 0730 this AM. - CT head without contrast not obtained - CTA head and neck moderately severe scattered atherosclerotic disease, no crit ical stenosis - initial NIHSS 1 - continue neuro checks - NPO until bedside swallow eval - PT/OT/CENTER MANAGER - monitor on telemetry - start ASA, statin. Await surgical recs regarding restarting Eliquis. - permissive hypertension <220/120 - MRI brain, echo, FLP, HgbA1c ordered - neurology consulted, appreciate recs (2) RENEE (acute kidney injury): Code(s): N17.9 - Acute kidney failure, unspecified Status: Acute Assessment and Plan: -admit creatinine 1.5, baseline around 1.0 -received 500 cc IV fluid bolus in ED -appears euvolemic next item monitor urine output -avoid nephrotoxins -repeat BMP in a.m. (3) Adenocarcinoma of cecum: Code(s): C18.0 - Malignant neoplasm of cecum Status: Acute Assessment and Plan: -s/p laparoscopic right hemicolectomy with ileocolic anastomosis on 08/30/2025 -noted subcutaneous emphysema on imaging, discussed with general surgery felt these findings likely consistent with recent surgery. -general surgery consulted from ED, appreciate recommendations. CT abdomen/pelvis pending. (4) Atrial fibrillation: Code(s): I48.91 - Unspecified atrial fibrillation Status: Acute Assessment and Plan: -chronic history, previously on Eliquis which has been on hold for the last 6-8 weeks as below. - HR 100s in ED, asymptomatic - monitor on telemetry -continue home Toprol XL. May benefit from titration if heart rate persistently elevated. (5) Anemia: Code(s): D64.9 - Anemia, unspecified Status: Acute Assessment and Plan: - Hgb 12.1, improved from previous. Was previously on iron supplement, patient reports it causing GI upset. - Eliquis has been held due to concern for slow GI bleed prior to removal of adenocarcinoma - monitor daily CBC - appreciate general surgery recs regarding resuming Eliquis (6) Cardiomyopathy: Code(s): I42.9 - Cardiomyopathy, unspecified Status: Acute Assessment and Plan: -echo showed EF 45%, diastolic dysfunction -patient appears euvolemic -continue home metoprolol -monitor volume status -repeat echo pending (7) Hypertension: Code(s): I10 - Essential (primary) hypertension Status: Acute Assessment and Plan: -BP 122/96 -continue home metoprolol Plan DVT prophylaxis: Lovenox Code status: full code Dispo: TBD pending work-up Quality VTE Prophylaxis VTE prophylaxis: pharmacologic ordered Hospitalist MIPS Advance Care Plan I have confirmed that the patient's Advanced Care Plan is present, code status is documented, or surrogate decision maker is listed in patient medical record.: Yes Medication Reconciliation I have utilized all available resources to obtain, update and review the patients current medications (includes all prescriptions, OTC, herbals, cannabis, and nutritional supplements).: Yes The patient is not eligible for med reconciliation; the patient is in a emergent medical situation where delaying treatment would jeopardize the patients health.: No
--- NOTE | 2025-09-04 12:29 | WPCEDHO ---
ED Hand Off Checklist All vitals saved: yes IV Site documented: yes All med administrations documented: yes Triage Note Triage Note Pt to ED via EMS c/o L arm 09/04/25 08:57 weakness since this AM at 0730. Pt a&ox4. Pt had tumor removed from colon on thursday. Pt is on afib, has not started eliquis back since surgery. Allergies No Known Allergies Allergy (Unknown, Verified 08/30/25 18:26) Family History (Last Reviewed 09/04/25 @ 09:25 by Lizet Hung PA-C) Father Cerebrovascular accident Mother Family history of coronary artery disease Other Family history of malignant neoplasm Active Medications including assessments/comments Sodium Chloride (Normal Saline Iv) 1,000 mls @ 500 mls/hr IV CONT .Q2H STA Stop: 09/04/25 12:58 Last Admin: 09/04/25 11:43 Dose: 500 mls/hr Documented By: MLI Infusion/Titration Document 09/04/25 11:43 MLI (Rec: 09/04/25 11:44 MLI [id number]) Intake IV Site Peripheral Access Left Forearm Container Volume 1,000 Waste Amount 0 Dosing Infusion Rate 500 Cumulative Dose Not Applicable Increase/Decrease Started Elapsed Time Elapsed Time ( 0m minutes) Interventions/Assessments Cardiac Monitoring Start: 09/04/25 08:56 Freq: Status: Active Protocol: Document 09/04/25 09:30 KNW (Rec: 09/04/25 09:31 KNW [id number]) Fingerprinter Assessment Fingerprinter Yes Applied Pulse Rate (60-100) 105 H EKG Rythm Atrial Fibrillation IV / Saline Lock, Insert Start: 09/04/25 09:03 Freq: STAT Status: Active Protocol: Document 09/04/25 09:29 KNW (Rec: 09/04/25 09:29 KNW [id number]) IV Assessment Peripheral Access Right Forearm IV Catheter Access Initiated IV Insertion Date 09/04/25 IV Insertion Time 09:29 Catheter Gauge 18 IV Insertion 1 Attempts Ultrasound Used for No Placement IV Site Assessment WNL IV Care and WNL Maintenance Peripheral Access Left Forearm IV Catheter Access Initiated Before Arrival Catheter Gauge 20 IV Site Assessment WNL IV Care and WNL Maintenance PA: Cardiovascular Assessment Start: 09/04/25 08:56 Freq: Status: Active Protocol: Document 09/04/25 09:35 KNW (Rec: 09/04/25 09:36 KNW [id number]) Cardiovascular Assessment Cardiovascular Numbness,Tingling Symptoms Skin Description Normal Color Jugular Vein None Distention Heart Sounds Normal Additional numbness and tingling in L hand Cardiovascular Assessment Comments PA: Neurological Assessment Start: 09/04/25 08:56 Freq: Status: Active Protocol: Document 09/04/25 09:33 KNW (Rec: 09/04/25 09:34 KNW [id number]) Neurological Assessment Level of Alert,Awake Consciousness Arousable to Verbal Orientation Oriented to Person,Oriented to Place,Oriented to Time Neurological Tingling/Numbness Symptoms Behavior Appropriate,Cooperative Patient Able to Comprehend Comprehension Memory Description Intact Ability to Maintain Normal Balance Facial Symmetry Symmetrical Speech Pattern Clear Ability to Swallow Normal Tongue Position Midline Finger to Nose Test Normal Performance Heel to Harvey Test Normal Performance Bilateral Foot/Feet Extremity Movement Normal Description Bilateral Hand(s) Extremity Movement Normal,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 All Extremities Sensation Normal Description [place] Coma Scale Eyes Open Verbal Oriented and Alert Motor Follows Commands [place] Coma Total 15 Score Last Vital Signs Temperature 98.1 F 09/04/25 08:57 Pulse Rate 97 09/04/25 12:16 Respiratory Rate 18 09/04/25 12:16 Pulse Oximetry 98 09/04/25 12:16 Blood Pressure 122/96 H 09/04/25 12:16 Blood Pressure Mean 104 09/04/25 12:16 Oxygen Delivery Room Air 09/04/25 08:57 Weight 75 kg 09/04/25 08:57 Last Result - Abnormals Only Hgb 12.1 g/dL (14.0-18.0) L 09/04/25 09:12 Hct 39.8 % (42.0-52.0) L 09/04/25 09:12 MCH 25.3 pg (26-34) L 09/04/25 09:12 MCHC 30.4 g/dl (32-36) L 09/04/25 09:12 RDW 23.2 % (11.5-14.5) H 09/04/25 09:12 Neut % (Auto) 77.3 % (45.5-73.1) H 09/04/25 09:12 Lymph % (Auto) 12.7 % (18.3-44.2) L 09/04/25 09:12 [place] # (Auto) 0.7 K/mm3 (0.1-0.6) H 09/04/25 09:12 Abs Immat Gran (auto) 0.05 K/mm3 (0.00-0.031) H 09/04/25 09:12 Absolute Neuts (auto) 7.3 K/mm3 (1.3-6.7) H 09/04/25 09:12 PT 16.7 Seconds (11.1-14.7) H 09/04/25 09:12 Sodium 133 mmol/L (137-145) L 09/04/25 09:12 BUN 33 mg/dL (9-20) H D 09/04/25 09:12 Estimated GFR 44 (59-) L 09/04/25 10:23 POC Capillary Glucose 116 mg/dl (65-105) H 09/04/25 09:05 Albumin 3.3 g/dL (3.5-5.1) L 09/04/25 09:12 Most Recent Suicide Severity Rating Suicide Severity Rating NO RISK INDICATED 09/04/25 08:57
--- NOTE | 2025-09-04 13:00 | ADMGEN ---
This patient, Mahin Wallace, was admitted to 3 [facility] Surg Room 310-01. Patient/family oriented to hospital policies and general routines including ID bracelet, bed and alarms, visiting hours, pain management, procedures, bathroom and other care routines, personal items, smoking policy, room service/diet, and visiting hours. Information on how to activate the Rapid Response Team has been discussed. Patient/Family are encouraged to report perceived risks to care and to ask questions if they do not understand what they are told or what they should do.
--- NOTE | 2025-09-04 13:08 | P.CONGS_ITS ---
Assessment and Plan Assessment and plan (1) Stroke-like symptoms: Code(s): R29.90 - Unspecified symptoms and signs involving the nervous system Status: Acute Assessment and Plan: Patient presented to the ED today with symptoms of left arm weakness, numbness and tingling. He usually takes Eliquis for AFib, but this was held roughly 6 weeks ago due to concern for GI bleed. Patient has not yet restarted Eliquis. Head and neck CT demonstrated moderately severe scattered atherosclerotic disease, but no critical stenosis or occlusion. Extensive emphysematous changes and the extra thoracic soft tissues on the left side. Crepitus likely just postoperative. * MRI brain ordered. Continue to follow for results. (2) History of right hemicolectomy: Code(s): Z90.49 - Acquired absence of other specified parts of digestive tract Status: Acute Assessment and Plan: Patient is a 5 days status post right hemicolectomy. He had some abdominal discomfort after the surgery that subsided. He felt bloated when he went home and had an episode of emesis yesterday morning. States he felt better after this. Physical exam reveals extensive bruising to abdomen, left flank and back. All incisions are clean and dry with glue intact. Crepitus present throughout abdomen. Distended, nontender. Patient is last bowel movement was reportedly last . He endorses passing gas since this time. CT of the abdomen and pelvis has been ordered to rule out any sort of anastomotic leak or other abnormality. If anticoagulation is needed at this time, opt for Lovenox. If CT is clear, okay to resume Eliquis from surgical standpoint. Will consider additional bowel stimulation. (3) Anemia: Code(s): D64.9 - Anemia, unspecified Status: Acute Assessment and Plan: Patient has history of anemia presumably from GI bleed due to colon cancer. Labs today revealed a hemoglobin of 12.1, which is higher than when he was last here 3 days ago. Continue to monitor. (4) Atrial fibrillation: Code(s): I48.91 - Unspecified atrial fibrillation Status: Acute Assessment and Plan: Patient noted to be in atrial fibrillation with RVR upon admission to hospital today. He has not taken his Eliquis in 6 weeks due to concern for anemia from GI bleeding. Not currently on any anticoagulation. Consider Lovenox for the time being. If CT of the abdomen is free of any abnormalities, okay from surgical standpoint to resume Eliquis. CA echo dop bubble study ordered. Plan Discussed patient's case and plan of care with Dr. Perry. History of Present Illness Consult details Consult date: 09/04/25 Reason for consult: other (CVA, L arm weakness, recent hemicolectomy) Requesting physician: Lizet Hung PA-C Narrative: Patient is an 89-year-old male, well known to the General surgery team due to history of cecal adenocarcinoma, status post laparoscopic right hemicolectomy with ileocolic anastomosis on 08/30/2025, who we have been asked to see in surgical consultation for CVA and L arm weakness. Patient also has history of anemia, which prompted EGD and colonoscopy prior to colon cancer diagnosis. During this time, roughly 6 weeks ago, patient was instructed to hold his Eliquis. He has not taken it since this time. It was not resumed after surgery 5 days ago. History of AFib also present. Patient reports that when he woke up this morning he was walking around his house when he noticed that something was hitting his left leg. He looked down to realize that it was his left arm that was hitting his leg. He continued to have left arm weakness and numbness throughout the morning. Patient recalled that when his Eliquis was held six weeks ago that he was advised to go to the ER for any symptoms of this sort, prompting him to present today. Patient states that after his surgery he was feeling some mild abdominal discomfort that subsided. He states that his last bowel movement was while he was still in the hospital last week on the day after his surgery (08/31). When discharged he felt very bloated and distended. He had an episode of emesis yesterday morning. States he felt better after this. Endorses passing gas. No extreme abdominal pain. Upon interview today, patient denies any abdominal pain, nausea/vomiting. States he is still having some tingling down his left arm. Workup in the ED revealed a normal white blood cell count. Mild anemia, better than his last admission last week. Normal troponin. Normal BUN and creatinine. CTA of the head and neck revealed moderately severe scattered atherosclerotic disease but no critical stenosis or occlusion. Extensive emphysematous changes in the extra thoracic soft tissues left side. Chest x-ray demonstrated no acute cardiopulmonary findings given portable technique. Subcutaneous emphysema. Electrocardiogram revealed AFib with RVR. MRI of the brain, Ca echo dop bubble study, and CT abdomen pelvis with contrast all ordered. [facility] Past Medical History Medical History (Updated 09/04/25 @ 13:34 by GAVINO Marks) Cecum mass Anemia Atrial fibrillation Moderate mitral regurgitation Cardiomyopathy H/O prostate cancer Mild tricuspid regurgitation by prior echocardiogram Mitral valve regurgitation Family History Family History Father Cerebrovascular accident Mother Family history of coronary artery disease Other Family history of malignant neoplasm Social History Social History Social History: Smoking status: Former smoker Second hand tobacco smoke exposure: No Alcohol intake: never Substance use: never Substance use type: does not use Lack of Transportation: No Lack of Food: Never True Current Housing: I Have Housing Concerned About Future Housing: No Difficulty Paying Gas/Electric Bills: No Difficulty Paying for Meds: No Currently Unemployed: No Education: Bachelor's Degree Difficulty w/ Childcare or Family Care: No Living arrangements: with family Occupation/Education: retired Gender identity (if verbalized by the patient): Male Spiritual care concerns: No Meds Home Medications and Allergies Home Medications ?Medication ?Instructions ?Recorded ?Confirmed ?Type metoprolol succinate 25 mg 25 mg PO DAILY #90 tabs 09/04/25 Rx tablet,extended release 24 hr (Toprol XL) Allergies Allergy/AdvReac Type Severity Reaction Status Date / Time No Known Allergies Allergy Unknown Verified 09/04/25 13:19 Vital Signs Vital Signs - 24 hr 09/04/25 08:57 09/04/25 09:05 09/04/25 09:30 Temperature 98.1 F Pulse Rate 109 H 105 H 105 H Respiratory Rate 20 20 Blood Pressure 139/64 Pulse Oximetry 100 95 Oxygen Delivery Room Air 09/04/25 09:39 09/04/25 09:46 09/04/25 10:31 Temperature Pulse Rate 112 H 95 103 H Respiratory Rate 18 20 19 Blood Pressure 140/81 132/83 130/93 H Pulse Oximetry 98 97 100 Oxygen Delivery 09/04/25 10:46 09/04/25 11:01 09/04/25 11:46 Temperature Pulse Rate 83 105 H 94 Respiratory Rate 20 23 H 22 H Blood Pressure 121/97 H 127/101 H 134/85 Pulse Oximetry 98 97 98 Oxygen Delivery 09/04/25 12:01 09/04/25 12:16 Temperature Pulse Rate 88 97 Respiratory Rate 24 H 18 Blood Pressure 126/75 122/96 H Pulse Oximetry 96 98 Oxygen Delivery Exam 2 Const: General: comfortable and no acute distress Eyes: General: appearance normal, both eyes and all related structures Neck: Neck: supple Chest: Other: crepitus indicative of subcutaneous emphysema Resp: Effort & Inspection: normal respiratory effort Cardio: Rate: regular rate GI: Inspection: distended GI Palp: Yes Soft to palpation, No Tenderness to palpation present (GI) and No Guarding due to palpation present (GI) A uscultation: Hypoactive bowel sounds present Other: Incisions are clean and dry with glue intact. Significant bruising to lower abdomen down to groin area and mid thigh. Ecchymosis extends to through left flank to midline of the lower back. Crepitus present throughout abdomen. 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 Left arm in general weaker than right. Psych: Mental Status: mental status grossly normal Results Labs 09/04/25 09:12 09/04/25 10:23 Labs: Abnormal lab results 09/04/25 09/04/25 09/04/25 Range/Units 09:05 09:12 10:23 Hgb 12.1 L (14.0-18.0) g/dL Hct 39.8 L (42.0-52.0) % MCH 25.3 L (26-34) pg MCHC 30.4 L (32-36) g/dl RDW 23.2 H (11.5-14.5) % Neut % (Auto) 77.3 H (45.5-73.1) % Lymph % (Auto) 12.7 L (18.3-44.2) % Rich # (Auto) 0.7 H (0.1-0.6) K/mm3 Abs Immat Gran (auto) 0.05 H (0.00-0.031) K/mm3 Absolute Neuts (auto) 7.3 H (1.3-6.7) K/mm3 PT 16.7 H (11.1-14.7) Seconds Sodium 133 L (137-145) mmol/L BUN 33 H D (9-20) mg/dL Estimated GFR 53 L 44 L (59 - ) POC Capillary Glucose 116 H (65-105) mg/dl Albumin 3.3 L (3.5-5.1) g/dL Diabetes panel 09/04/25 09/04/25 Range/Units 09:12 10:23 Sodium 133 L (137-145) mmol/L Potassium 4.4 (3.4-5.0) mmol/L Chloride 103 (98-107) mmol/L Carbon Dioxide 25 (22-30) mmol/L BUN 33 H D (9-20) mg/dL Creatinine 1.28 1.50 (0.7-1.3) mg/dL Glucose 100 (65-110) mg/dL Calcium 8.5 (8.4-10.2) mg/dL AST 37 (17-59) U/L ALT 26 (6-50) U/L Alkaline Phosphatase 58 (38-126) U/L Total Protein 6.3 (6.3-8.2) g/dL Albumin 3.3 L (3.5-5.1) g/dL Calcium panel 09/04/25 Range/Units 09:12 Calcium 8.5 (8.4-10.2) mg/dL Albumin 3.3 L (3.5-5.1) g/dL Pituitary panel 09/04/25 09/04/25 Range/Units 09:12 10:23 Sodium 133 L (137-145) mmol/L Potassium 4.4 (3.4-5.0) mmol/L Chloride 103 (98-107) mmol/L Carbon Dioxide 25 (22-30) mmol/L BUN 33 H D (9-20) mg/dL Creatinine 1.28 1.50 (0.7-1.3) mg/dL Glucose 100 (65-110) mg/dL Calcium 8.5 (8.4-10.2) mg/dL Adrenal panel 09/04/25 09/04/25 Range/Units 09:12 10:23 Sodium 133 L (137-145) mmol/L Potassium 4.4 (3.4-5.0) mmol/L Chloride 103 (98-107) mmol/L Carbon Dioxide 25 (22-30) mmol/L BUN 33 H D (9-20) mg/dL Creatinine 1.28 1.50 (0.7-1.3) mg/dL Glucose 100 (65-110) mg/dL Calcium 8.5 (8.4-10.2) mg/dL Total Bilirubin 0.9 (0.2-1.3) mg/dL AST 37 (17-59) U/L ALT 26 (6-50) U/L Alkaline Phosphatase 58 (38-126) U/L Total Protein 6.3 (6.3-8.2) g/dL Albumin 3.3 L (3.5-5.1) g/dL All other labs normal.
[2025-09-04] MEDS: PERFLUTREN LIPID MICROSPHERES 1.5 ML VIAL DILUTED TO 10 ML TOTAL VOLUME IV PUSH (15:15)
[2025-09-04] MEDS: ENOXAPARIN 30 MG/0.3 ML SYRINGE SUB-Q (15:57)
[2025-09-04] MEDS: ASPIRIN 81 MG ENTERIC TABLET PO (15:57)
--- NOTE | 2025-09-04 16:48 | IVDEFINITY ---
Prior to administration of IV Definity the patient was educated on the risks and benefits of the imaging enhancing agent including potential adverse side effects. The patient verbalized understanding. Allergies were verified. No exclusion criteria were identified and at least one of the following inclusion criteria were met: 1) physician request, 2) patient technically difficult to image (per the [place] [employer] Echocardi[employer] guidelines of two or more segments not discernable within the apical view), or 3) questionable left ventricular function. ?
[2025-09-05] VITALS (11 sets, daily range): BP systolic 121–135; BP diastolic 66–84; PULSE 62–105; RESP 16–18; TEMP 36.3–36.8; O2SAT 96–97; BMI 23.8
[2025-09-05 06:06] LABS: Hemoglobin A1C 5.4 % (<5.7)
[2025-09-05 06:14] LABS: Alanine Aminotransferase 21 U/L (6-50); Albumin Level 2.9 g/dL (3.5-5.1); Alkaline Phosphatase 56 U/L (38-126); Anion Gap 5 mmol/L (4-12); Aspartate Amino Transferase 33 U/L (17-59); Bilirubin,Total 0.6 mg/dL (0.2-1.3); Blood Urea Nitrogen 25 mg/dL (9-20); Calcium 8.2 mg/dL (8.4-10.2); Carbon Dioxide 25 mmol/L (22-30); Chloride 105 mmol/L (98-107); Cholesterol 135 mg/dL (0-200); Estimated CRCL calculation 46 ml/min; Estimated Glomerular Filt Rate > 60; Glucose 87 mg/dL (65-110); HDL Direct 39 mg/dL; Potassium 4.3 mmol/L (3.4-5.0); Sodium 135 mmol/L (137-145); Total Protein 5.7 g/dL (6.3-8.2); Triglycerides 116 mg/dL (<150)
--- NOTE | 2025-09-05 08:23 | P.PNIM_ITS ---
Progress Note: A&P Assessment and Plan (1) Acute CVA (cerebrovascular accident): Code(s): I63.9 - Cerebral infarction, unspecified Status: Acute Assessment and Plan: - presented with LUE ataxia. LKW 0730 this AM. 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 Continue statin. (2) REENE (acute kidney injury): Code(s): N17.9 - Acute kidney failure, unspecified Status: Acute Assessment and Plan: -admit creatinine 1.5, baseline around 1.0 -received 500 cc IV fluid bolus in ED with improvement in creatinine to baseline -appears euvolemic - monitor urine output -avoid nephrotoxins - monitor BMP (3) Adenocarcinoma of cecum: Code(s): C18.0 - Malignant neoplasm of cecum Status: Acute Assessment and Plan: -s/p laparoscopic right hemicolectomy with ileocolic anastomosis on 08/30/2025 - CT A/P showed extensive subcutaneous emphysema of the lower anterior and left lateral chest wal and upper abdominal wall without pneumothorax. -noted subcutaneous emphysema on imaging, discussed with general surgery felt these findings likely consistent with recent surgery. -general surgery consulted, no further work-up planned. Started bowel regimen. OK to resume Eliquis. (4) Atrial fibrillation: Code(s): I48.91 - Unspecified atrial fibrillation Status: Acute Assessment and Plan: -chronic history, previously on Eliquis which has been on hold for the last 6-8 weeks as below. - monitor on telemetry -continue home Toprol XL. Resume Eliquis. (5) Anemia: Code(s): D64.9 - Anemia, unspecified Status: Acute Assessment and Plan: - Hgb 12.1, improved from previous. Was previously on iron supplement, patient reports it causing GI upset. - Eliquis has been held due to concern for slow GI bleed prior to removal of adenocarcinoma - monitor daily CBC and for signs of bleeding closely after restarting Eliquis (6) Cardiomyopathy: Code(s): I42.9 - Cardiomyopathy, unspecified Status: Acute Assessment and Plan: -echo showed EF 45%, diastolic dysfunction -patient appears euvolemic -continue home metoprolol -monitor volume status -repeat echo pending (7) Hypertension: Code(s): I10 - Essential (primary) hypertension Status: Acute Assessment and Plan: -BP 122/96 -continue home metoprolol Plan DVT prophylaxis: Eliquis Code status: full code Dispo: home likely tomorrow Subjective Date/time seen: 09/05/25 08:23 Interval history: Patient is an 89-year-old male with past medical history of atrial fibrillation not currently on anticoagulation, adenocarcinoma of the colon s/p bowel resection 08/30/25 who presented with LUE ataxia/weakness. Patient seen and examined at bedside. Still with left upper extremity ataxia. No further focal deficits. Review of Systems Review of Systems: All systems reviewed & are unremarkable except as noted in HPI and below Exam Narrative: General: NAD Eyes: EOMI ENT: neck supple Cardiovascular: Regular rate and rhythm Respiratory: Clear to auscultation, respirations even and unlabored on RA Gastrointestinal: Soft, non tender Genitourinary: no suprapubic tenderness Musculoskeletal: No edema Skin: warm, dry Neuro: Alert and oriented x4. Cranial nerves II-XII intact. Face symmetric. Speech clear. Strength 5/5 in BUEs/BLEs. Sensation to light touch intact face, BUE/BLEs. Left upper extremity ataxia. Psych: Mood appropriate Objective Data Vital Signs Vital Signs: Vital Signs - 24 hr 09/04/25 08:57 09/04/25 09:05 09/04/25 09:30 Temperature 98.1 F Pulse Rate 109 H 105 H 105 H Respiratory Rate 20 20 Blood Pressure 139/64 Pulse Oximetry 100 95 Oxygen Delivery Room Air 09/04/25 09:39 09/04/25 09:46 09/04/25 10:31 Temperature Pulse Rate 112 H 95 103 H Respiratory Rate 18 20 19 Blood Pressure 140/81 132/83 130/93 H Pulse Oximetry 98 97 100 Oxygen Delivery 09/04/25 10:46 09/04/25 11:01 09/04/25 11:46 Temperature Pulse Rate 83 105 H 94 Respiratory Rate 20 23 H 22 H Blood Pressure 121/97 H 127/101 H 134/85 Pulse Oximetry 98 97 98 Oxygen Delivery 09/04/25 12:01 09/04/25 12:16 09/04/25 14:00 Temperature 96.9 F L Pulse Rate 88 97 90 Respiratory Rate 24 H 18 17 Blood Pressure 126/75 122/96 H 134/82 Pulse Oximetry 96 98 98 Oxygen Delivery 09/04/25 16:00 09/04/25 20:00 09/04/25 21:14 Temperature 98.1 F Pulse Rate 97 79 88 Respiratory Rate 16 Blood Pressure 122/76 Pulse Oximetry 97 Oxygen Delivery 09/05/25 00:00 09/05/25 04:00 09/05/25 04:42 Temperature 98.2 F Pulse Rate 81 87 98 Respiratory Rate 16 Blood Pressure 121/84 Pulse Oximetry 97 Oxygen Delivery Intake/Output Intake/Output: Intake & Output 09/02/25 09/03/25 09/04/25 09/05/25 23:59 23:59 23:59 23:59 Intake Total 240 400 Balance 240 400 Meds/Results Medications: Active Medications Generic Name Dose Route Start Last Admin Trade Name Freq PRN Reason Stop Dose Admin Acetaminophen 650 mg 09/04/25 11:29 Acetaminophen 325 Mg Tablet PO Q4H PRN Mild Pain (1-3) or Fever Aspirin 81 mg 09/04/25 13:30 09/04/25 15:57 Aspirin 81 Mg Enteric Tablet PO 81 mg QAM [facility] Administration Enoxaparin Sodium 40 mg 09/05/25 12:00 Enoxaparin 40 Mg/0.4 Ml Syringe SUB-Q Q24H DONNA Metoprolol Succinate 25 mg 09/04/25 13:35 09/04/25 14:33 Metoprolol Succinate Ext Rel 25 Mg Tabcr PO Not Given DAILY DONNA Ondansetron HCl 4 mg 09/04/25 11:29 Ondansetron Inj 4 Mg/2 Ml Vial IV PUSH Q4H PRN Nausea Perflutren Lipid Microsphere 0 ml 09/04/25 11:29 Perflutren Lipid Microspheres 1.5 Ml Vial Diluted To 10 Ml Total Volume IV PUSH 09/07/25 11:31 ONCE PRN adequate visualization Protocol Radiology Results: ITS Impressions Head/Neck CTA 09/04/25 09:34 IMPRESSION: 1. Moderately severe scattered atherosclerotic disease but no critical stenosis or occlusion seen. 2. Extensive emphysematous changes in the extrathoracic soft tissues on the left side. Correlate with clinical presentation and exam for additional imaging of the chest as clinically appropriate. Chest X-Ray 09/04/25 09:50 IMPRESSION: 1. No acute cardiopulmonary findings given portable technique. 2. Subcutaneous emphysema left lateral chest wall. Trauma? Abdomen/Pelvis CT 09/04/25 13:50 IMPRESSION: 1. 1. Extensive subcutaneous emphysema of the lower anterior and left lateral chest wall and upper abdominal wall. 2. No evidence of pneumothorax at the lung bases. No evidence of pneumoperitoneum. 3. Mildly dilated loops of small bowel measuring up to 30 mm in diameter. 4 above mentioned findings were discussed with the admitting physician at 2:16 PM. Labs Labs: Laboratory Results - last 24 hr 09/04/25 09/04/25 09/04/25 09:05 09:12 10:23 WBC 9.4 RBC 4.79 Hgb 12.1 L Hct 39.8 L MCV 83.1 MCH 25.3 L MCHC 30.4 L RDW 23.2 H Plt Count 267 MPV 9.1 Immature Gran % (Auto) 0.5 Neut % (Auto) 77.3 H Lymph % (Auto) 12.7 L [place] % (Auto) 7.8 Eos % (Auto) 1.4 Baso % (Auto) 0.3 Lymph # (Auto) 1.20 [place] # (Auto) 0.7 H Eos # (Auto) 0.1 Baso # (Auto) 0.0 Abs Immat Gran (auto) 0.05 H Absolute Neuts (auto) 7.3 H Absolute Nucleated RBC 0.000 Band Neutrophils % Not Reportable Nucleated RBC % 0.0 Platelet Estimate Adequate Microcytosis 1+ Ovalocytes Occasional [place] Cells 2+ Schistocytes None seen PT 16.7 H INR 1.3 APTT 30.2 Sodium 133 L Potassium 4.4 Chloride 103 Carbon Dioxide 25 Anion Gap 5 BUN 33 H D Creatinine 1.28 1.50 Estim Creat Clear Calc 35 30 Estimated GFR 53 L 44 L Glucose 100 POC Capillary Glucose 116 H Hemoglobin A1c Calcium 8.5 Total Bilirubin 0.9 AST 37 ALT 26 Alkaline Phosphatase 58 Troponin I < 0.012 Total Protein 6.3 Albumin 3.3 L Triglycerides Cholesterol LDL Cholesterol Direct HDL Direct 09/05/25 05:15 WBC RBC Hgb Hct MCV MCH MCHC RDW Plt Count MPV Immature Gran % (Auto) Neut % (Auto) Lymph % (Auto) [place] % (Auto) Eos % (Auto) Baso % (Auto) Lymph # (Auto) [place] # (Auto) Eos # (Auto) Baso # (Auto) Abs Immat Gran (auto) Absolute Neuts (auto) Absolute Nucleated RBC Band Neutrophils % Nucleated RBC % Platelet Estimate Microcytosis Ovalocytes [place] Cells Schistocytes PT INR APTT Sodium 135 L Potassium 4.3 Chloride 105 Carbon Dioxide 25 Anion Gap 5 BUN 25 H Creatinine 0.95 Estim Creat Clear Calc 46 Estimated GFR > 60 Glucose 87 POC Capillary Glucose Hemoglobin A1c 5.4 Calcium 8.2 L Total Bilirubin 0.6 AST 33 ALT 21 Alkaline Phosphatase 56 Troponin I Total Protein 5.7 L Albumin 2.9 L Triglycerides 116 Cholesterol 135 LDL Cholesterol Direct 69 HDL Direct 39 Quality VTE Prophylaxis VTE prophylaxis: pharmacologic ordered
[2025-09-05] MEDS: ASPIRIN 81 MG ENTERIC TABLET PO (08:24)
[2025-09-05] MEDS: METOPROLOL SUCCINATE EXT REL 25 MG TABCR PO (08:24)
--- NOTE | 2025-09-05 10:26 | WPDNEURCNPN ---
Assessment and Plan Assessment and plan (1) Left arm weakness: Code(s): R29.898 - Other symptoms and signs involving the musculoskeletal system Status: Acute (2) RENEE (acute kidney injury): Code(s): N17.9 - Acute kidney failure, unspecified Status: Acute (3) Atrial fibrillation: Code(s): I48.91 - Unspecified atrial fibrillation Status: Acute Plan examination revealed no drift of 1 or the site tone normal reflexes symmetrical plantars downgoing. 1. Stroke-like symptom with the possibility of TIA 2. Rule out the possibly metastatic disease plan is to evaluate completely with echocardiogram, MRI of the brain. And further recommendation will benefit from the EEG as well Consult date: 09/05/25 HPI: Mahin Wallace is a 89 year old male admitted to the hospital through the emergency room , For the complaints of left upper extremity weakness and with the information that patient woke up in the morning feeling normal ,shaved his face and brushed his teeth ,was walking throughout his house at 7:30 a.m. when he noticed something hitting his left lower extremity he looked down and realized it was his left upper extremity hitting his left lower extremity as if left upper extremity was weak. He tried eating breakfast but again the left hand felt weak was not following his mind ,he did not give any history of weakness of left lower extremity, gave no history of numbness and tingling of the upper and lower extremities. Patient has undergone right hemicolectomy last Thursday for the removal of the colonic tumor. He did give the history of atrial fibrillation but reported that he has been taking off his Eliquis for approximately 6 weeks because of the GI bleeding. He is not allergic to any medications. As mentioned above he has ongoing history of 1. Atrial fibrillation 2. Moderate mitral regurgitation 3. Cecal mass 4. Cardiomyopathy 5. No alcohol intake 6. No smoking. On initial exam in the emergency room he was noted to have slight weakness of the left buffer nickel along with the pronator drift of the left upper extremity otherwise the neuro exam was essentially normal. His vital signs were normal with pulse rate of 109 and blood pressure 134/82, head and neck CTA documented moderately severe scattered atherosclerotic disease but no critical stenosis or occlusion, abdominal pelvic CT scan documented changes of subcutaneous emphysema. And at this stage MRI of the head is awaited. Review of Systems Review of Systems: All systems reviewed & are unremarkable except as noted in HPI and below PMFSH Past Medical History Medical History Cecum mass Anemia Atrial fibrillation Moderate mitral regurgitation Cardiomyopathy H/O prostate cancer Mild tricuspid regurgitation by prior echocardiogram Mitral valve regurgitation Family History Family History Father Cerebrovascular accident Mother Family history of coronary artery disease Other Family history of malignant neoplasm Social History Social History Social History: Smoking status: Former smoker Second hand tobacco smoke exposure: No Alcohol intake: never Substance use: never Substance use type: does not use Lack of Transportation: No Lack of Food: Never True Current Housing: I Have Housing Concerned About Future Housing: No Difficulty Paying Gas/Electric Bills: No Difficulty Paying for Meds: No Currently Unemployed: No Education: Bachelor's Degree Difficulty w/ Childcare or Family Care: No Living arrangements: with family Occupation/Education: retired Gender identity (if verbalized by the patient): Male Spiritual care concerns: No Meds Home Medications and Allergies Home Medications ?Medication ?Instructions ?Recorded ?Confirmed ?Type metoprolol succinate 25 mg 25 mg PO DAILY #90 tabs 10/17/21 09/04/25 Rx tablet,extended release 24 hr (Toprol XL) Allergies Allergy/AdvReac Type Severity Reaction Status Date / Time No Known Allergies Allergy Unknown Verified 09/04/25 13:19 Vital Signs Vital Signs - 24 hr 09/04/25 10:31 09/04/25 10:46 09/04/25 11:01 Temperature Pulse Rate 103 H 83 105 H Respiratory Rate 19 20 23 H Blood Pressure 130/93 H 121/97 H 127/101 H Pulse Oximetry 100 98 97 09/04/25 11:46 09/04/25 12:01 09/04/25 12:16 Temperature Pulse Rate 94 88 97 Respiratory Rate 22 H 24 H 18 Blood Pressure 134/85 126/75 122/96 H Pulse Oximetry 98 96 98 09/04/25 14:00 09/04/25 16:00 09/04/25 20:00 Temperature 36.1 C L Pulse Rate 90 97 79 Respiratory Rate 17 Blood Pressure 134/82 Pulse Oximetry 98 09/04/25 21:14 09/05/25 00:00 09/05/25 04:00 Temperature 36.7 C Pulse Rate 88 81 87 Respiratory Rate 16 Blood Pressure 122/76 Pulse Oximetry 97 09/05/25 04:42 09/05/25 08:24 Temperature 36.8 C Pulse Rate 98 98 Respiratory Rate 16 Blood Pressure 121/84 Pulse Oximetry 97 Exam Narrative: Exam today revealed him to be awake alert cooperative in no obvious acute distress, head normocephalic with no cranial bruit, ear nose throat examination normal, neck supple with no cervical bruit, heart regular, lungs clear abdomen is soft neurological is awake alert oriented with normal fluent speech without evidence of dysphagia dysarthria dysphonia pupils round regular feels the vision full extraocular movements full face symmetrical tongue midline motor Results Labs 09/04/25 09:12 09/05/25 05:15 Labs: BMP 09/05/25 05:15 Sodium 135 L Potassium 4.3 Chloride 105 Carbon Dioxide 25 BUN 25 H Creatinine 0.95 Glucose 87 Calcium 8.2 L Liver Function 09/05/25 Range/Units 05:15 Total Bilirubin 0.6 (0.2-1.3) mg/dL AST 33 (17-59) U/L ALT 21 (6-50) U/L Alkaline Phosphatase 56 (38-126) U/L Albumin 2.9 L (3.5-5.1) g/dL
--- NOTE | 2025-09-05 10:35 | PCSTNOTE ---
Please refer to the Bedside Swallow Evaluation in the EMR. Please note, silent aspiration cannot be ruled out at bedside. The patient is a 89 year old male admitted with left arm weakness and possible TIA. Orders received to complete BSE and r/o aspiration risk. The patient was seen seated up in a chair and presented the following consistencies: thin liquid via straw, puree, and solid consistencies. Oral stage: Timely oral preparation and transit for all consistencies. Pharyngeal Stage: Timely swallow initiation across consistencies without viewed clinical signs of aspiration. Recommend 1. Regular diet / Level 7 2. Thin liquid / Level 0 3. Upright with meals 4. May eat independent. Thank you for the consult
--- NOTE | 2025-09-05 12:22 | PM.PNGS ---
Progress Note: A&P Assessment and Plan (1) Stroke-like symptoms: Code(s): R29.90 - Unspecified symptoms and signs involving the nervous system Status: Acute Assessment and Plan: Awaiting MRI. Neurology consulted. Okay to start oral anticoagulation from a surgical standpoint if needed. (2) History of right hemicolectomy: Code(s): Z90.49 - Acquired absence of other specified parts of digestive tract Status: Acute Assessment and Plan: Healing well following his right hemicolectomy on 08/30/25. Tolerating a solid diet with no more nausea or vomiting. Still no bowel movement. Will start Miralax. (3) Anemia: Code(s): D64.9 - Anemia, unspecified Status: Acute Assessment and Plan: Stable (4) Atrial fibrillation: Code(s): I48.91 - Unspecified atrial fibrillation Status: Acute Assessment and Plan: Okay to start oral anticoagulation from a surgical standpoint. Plan Discussed patient's case and plan of care with Dr. Perry. Subjective Subjective Date/Time Seen: 09/05/25 12:22 Patient reports: no new complaints, voiding w/o difficulty, flatus, no bowel movement and afebrile Interval history: No acute changes overnight. Patient awaiting brain MRI and Neurology has been consulted. He denies abdominal pain, nausea, vomiting, distention, or difficulty tolerating his diet. Exam Const: General: comfortable and no acute distress Orientation/consciousness: patient oriented x3 GI: Inspection: non-distended GI Palp: Yes Soft to palpation, No Tenderness to palpation present (GI), No Guarding due to palpation present (GI), No Hernia present and No Rebound tenderness present Auscultation: normal bowel sounds Other: Incisions are dry with glue intact, no erythema. Healing ecchymosis to the LLQ extending towards his left flank as well as some ecchymosis extending to his left upper thigh and suprapubic area. No palpable hematoma. Crepitus still around his left chest and abdomen. Objective Data Vital Signs Vital Signs: Vital Signs - 24 hr 09/04/25 14:00 09/04/25 16:00 09/04/25 20:00 Temperature 96.9 F L Pulse Rate 90 97 79 Respiratory Rate 17 Blood Pressure 134/82 Pulse Oximetry 98 Oxygen Delivery 09/04/25 21:14 09/05/25 00:00 09/05/25 04:00 Temperature 98.1 F Pulse Rate 88 81 87 Respiratory Rate 16 Blood Pressure 122/76 Pulse Oximetry 97 Oxygen Delivery 09/05/25 04:42 09/05/25 08:00 09/05/25 08:00 Temperature 98.2 F Pulse Rate 98 94 Respiratory Rate 16 Blood Pressure 121/84 Pulse Oximetry 97 Oxygen Delivery Room Air 09/05/25 08:24 09/05/25 11:53 Temperature Pulse Rate 98 Respiratory Rate Blood Pressure Pulse Oximetry Oxygen Delivery Room Air Intake/Output Intake/Output: Intake & Output 09/02/25 09/03/25 09/04/25 09/05/25 23:59 23:59 23:59 23:59 Intake Total 240 520 Balance 240 520 Meds/Results Medications: Active Medications Generic Name Dose Route Start Last Admin Trade Name Freq PRN Reason Stop Dose Admin Acetaminophen 650 mg 09/04/25 11:29 Acetaminophen 325 Mg Tablet PO Q4H PRN Mild Pain (1-3) or Fever Aspirin 81 mg 09/04/25 13:30 09/05/25 08:24 Aspirin 81 Mg Enteric Tablet PO 81 mg QAM DONNA Administration Enoxaparin Sodium 40 mg 09/05/25 12:00 Enoxaparin 40 Mg/0.4 Ml Syringe SUB-Q Q24H COUNT INCLUDES THE [facility] Metoprolol Succinate 25 mg 09/04/25 13:35 09/05/25 08:24 Metoprolol Succinate Ext Rel 25 Mg Tabcr PO 25 mg DAILY DONNA Administration Ondansetron HCl 4 mg 09/04/25 11:29 Ondansetron Inj 4 Mg/2 Ml Vial IV PUSH Q4H PRN Nausea Perflutren Lipid Microsphere 0 ml 09/04/25 11:29 Perflutren Lipid Microspheres 1.5 Ml Vial Diluted To 10 Ml Total Volume IV PUSH 09/07/25 11:31 ONCE PRN adequate visualization Protocol Radiology Results: ITS Impressions Head/Neck CTA 09/04/25 09:34 IMPRESSION: 1. Moderately severe scattered atherosclerotic disease but no critical stenosis or occlusion seen. 2. Extensive emphysematous changes in the extrathoracic soft tissues on the left side. Correlate with clinical presentation and exam for additional imaging of the chest as clinically appropriate. Chest X-Ray 09/04/25 09:50 IMPRESSION: 1. No acute cardiopulmonary findings given portable technique. 2. Subcutaneous emphysema left lateral chest wall. Trauma? Abdomen/Pelvis CT 09/04/25 13:50 IMPRESSION: 1. 1. Extensive subcutaneous emphysema of the lower anterior and left lateral chest wall and upper abdominal wall. 2. No evidence of pneumothorax at the lung bases. No evidence of pneumoperitoneum. 3. Mildly dilated loops of small bowel measuring up to 30 mm in diameter. 4 above mentioned findings were discussed with the admitting physician at 2:16 PM. Labs Labs: Laboratory Results - last 24 hr 09/05/25 05:15 Sodium 135 L Potassium 4.3 Chloride 105 Carbon Dioxide 25 Anion Gap 5 BUN 25 H Creatinine 0.95 Estim Creat Clear Calc 46 Estimated GFR > 60 Glucose 87 Hemoglobin A1c 5.4 Calcium 8.2 L Total Bilirubin 0.6 AST 33 ALT 21 Alkaline Phosphatase 56 Total Protein 5.7 L Albumin 2.9 L Triglycerides 116 Cholesterol 135 LDL Cholesterol Direct 69 HDL Direct 39
[2025-09-05] MEDS: ENOXAPARIN 40 MG/0.4 ML SYRINGE SUB-Q (13:00)
[2025-09-05] MEDS: ARTIFICIAL TEARS OPHTH SOLN 15 ML BOTTLE 1 DROP EACH EYE (13:01)
--- NOTE | 2025-09-05 15:50 | PCOTNOTE ---
Attempted to see pt for OT evaluation however pt was off the floor for a MRI. Will continue to follow.
[2025-09-05] MEDS: APIXABAN 5 MG TABLET PO (21:47)
[2025-09-06] VITALS (7 sets, daily range): BP systolic 123–132; BP diastolic 64–83; PULSE 77–95; RESP 18; TEMP 36.3–36.4; O2SAT 97–98
[2025-09-06 06:39] LABS: Hematocrit 37.9 % (42.0-52.0); Hemoglobin 11.1 g/dL (14.0-18.0); Immature Granulocyte Percent A 0.8 % (0-0.5); Lymphocytes Absolute Auto 1.14 K/mm3 (0.9-3.2); Mean Corpuscular HGB Conc 29.3 g/dl (32-36); Mean Corpuscular Hemoglobin 24.9 pg (26-34); Mean Corpuscular Volume 85.0 fl (80-100); Nucleated Red Blood Cells Absolute Auto 0.000 K/mm3 (0.0-0.012); Nucleated Red Blood Cells Perc 0.0 % (0.0-0.2); Platelet Count Result 248 k/mm3 (150-375); Red Blood Count 4.46 M/mm3 (4.6-6.20); White Blood Count 7.8 K/mm3 (4.5-10.0)
[2025-09-06 07:05] LABS: Alanine Aminotransferase 20 U/L (6-50); Albumin Level 3.0 g/dL (3.5-5.1); Alkaline Phosphatase 56 U/L (38-126); Anion Gap 4 mmol/L (4-12); Aspartate Amino Transferase 29 U/L (17-59); Bilirubin,Total 0.5 mg/dL (0.2-1.3); Blood Urea Nitrogen 20 mg/dL (9-20); Calcium 8.1 mg/dL (8.4-10.2); Carbon Dioxide 26 mmol/L (22-30); Chloride 105 mmol/L (98-107); Estimated CRCL calculation 52 ml/min; Estimated Glomerular Filt Rate > 60; Glucose 94 mg/dL (65-110); Potassium 4.4 mmol/L (3.4-5.0); Sodium 135 mmol/L (137-145); Total Protein 5.9 g/dL (6.3-8.2)
[2025-09-06 07:36] LABS: Anisocytosis 2+; Schistocytes None Seen
[2025-09-06 07:38] LABS: Hypochromasia 1+; Ovalocytes 2+
[2025-09-06 07:40] LABS: Poikilocytosis Occasional
[2025-09-06] MEDS: METOPROLOL SUCCINATE EXT REL 25 MG TABCR PO (09:02)
--- NOTE | 2025-09-06 13:43 | P.DS_ITS ---
DS: Admitting Diagnosis Discharge Date 09/06/2025 Admitting Diagnosis Stroke-like symptoms, RENEE, adenocarcinoma cecum, atrial fibrillation, anemia, cardiomyopathy hypertension DS: Discharge Diagnosis Discharge Diagnosis (1) Acute CVA (cerebrovascular accident): Code(s): I63.9 - Cerebral infarction, unspecified Status: Acute (2) Adenocarcinoma of cecum: Code(s): C18.0 - Malignant neoplasm of cecum Status: Acute (3) RENEE (acute kidney injury): Code(s): N17.9 - Acute kidney failure, unspecified Status: Acute (4) Anemia: Code(s): D64.9 - Anemia, unspecified Status: Acute (5) History of right hemicolectomy: Code(s): Z90.49 - Acquired absence of other specified parts of digestive tract Status: Acute (6) Current use of chcf anticoagulation: Code(s): 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 He had to hold his apixaban prior to surgery. Patient developed tingling sensation to his left upper extremity and was having some trouble with the [id number] test upon ER visit. He was admitted for further workup for stroke after CTA of the head was unremarkable. No tPA due to low NIH stroke scale 1 as documented. Patient reports that his use of his left hand is improving in his sensation is improving. He had weakness any point. CT scanned the chest abdomen pelvis shows significant amount subcutaneous emphysema still present surgery. This was discussed with surgery team and no intervention needed. Patient not having any pain or difficulties with this finding. Patient very insistent going today. Physical therapy and occupational therapy saw and did not feel like he needed any ongoing services per patient report. Both services documented a discharge clarification order. Apixaban can be re-initiated. The MRI did show a very small area stroke involving the hand knob of the right precentral motor cortex. Lipid panel showed that LDL was below 70 so no statin initiated. Status at Discharge Cognitive/behavioral status at discharge: Awake alert oriented and pleasant, persistent on discharge today Functional status at discharge: independent ambulation Overall status at discharge: patient is progressing back to baseline Time Spent with Patient Time attestation: Total time spent providing and/or coordinating discharge services: 60 minutes Time spent: Greater than 30 minutes Exam Narrative: GENERAL: Well-appearing, well-nourished, and in no acute distress. HEAD: Normocephalic, atraumatic. ENT:? Mucous membranes moist. CHEST: Clear to auscultation.? No respiratory distress. HEART: Regular rate and rhythm. ? Normal peripheral pulses. ABDOMEN: Soft, nontender, nondistended. EXTREMITIES: Normal range of motion. No peripheral edema. SKIN: Warm dry normal color NEURO: Alert and oriented x3. Very minimal left hand ataxia with finger to nose otherwise no motor deficit noted, mild tingling still reported to the left hand. PSYCH: Normal mood and affect DS: Data Data Completed and Pending Labs on day of discharge: Labs from last 24 hours 09/06/25 05:59 WBC 7.8 RBC 4.46 L Hgb 11.1 L Hct 37.9 L MCV 85.0 MCH 24.9 L MCHC 29.3 L RDW 22.7 H Plt Count 248 MPV 10.0 Immature Gran % (Auto) 0.8 H Neut % (Auto) 73.8 H Lymph % (Auto) 14.7 L [place] % (Auto) 8.6 H Eos % (Auto) 1.5 Baso % (Auto) 0.6 Lymph # (Auto) 1.14 [place] # (Auto) 0.7 H Eos # (Auto) 0.1 Baso # (Auto) 0.1 Abs Immat Gran (auto) 0.06 H Absolute Neuts (auto) 5.7 Absolute Nucleated RBC 0.000 Band Neutrophils % Not Reportable Nucleated RBC % 0.0 Platelet Estimate Adequate Hypochromasia 1+ Poikilocytosis Occasional Anisocytosis 2+ Ovalocytes 2+ Schistocytes None seen Sodium 135 L Potassium 4.4 Chloride 105 Carbon Dioxide 26 Anion Gap 4 BUN 20 Creatinine 0.84 Estim Creat Clear Calc 52 Estimated GFR > 60 Glucose 94 Calcium 8.1 L Total Bilirubin 0.5 AST 29 ALT 20 Alkaline Phosphatase 56 Total Protein 5.9 L Albumin 3.0 L Discharge Plan Discharge Consulting providers: Ashley Adamson; Juan David Perry Discharging Clinician: Johnny Humphrey Anticipated Discharge Date/Time: 09/06/25 13:44 Patient Disposition: Home Activity: as tolerated Diet: heart healthy Discharge Instructions: Resume your Eliquis tonight. Patient Instructions: Antibiotic Form, Apixaban (By mouth) Patient Language: Italian Stand Alone Forms: General Discharge Information Follow-up/Referrals: Ashley Adamson MD [Physician, Neurology] - Call for Appointment Juan Dvaid Perry DO [Physician, General Surgery] - Keep Reg. Scheduled Appt. Discharge Medications: New acetaminophen 325 mg Tablet 650 mg PO Q4H PRN (Reason: Mild Pain (1-3) Or Fever) Qty: 0 0RF polyethylene glycol 3350 [Miralax] 17 gram Powder In Packet 17 g PO QAM Qty: 30 0RF Artificial Tears([id number]) 1-0.2-0.2 % Drops 1 drp EACH EYE QID PRN (Reason: Dry Eye(S)) Qty: 0 0RF Eliquis 5 mg Tablet 5 mg PO Q12HR Qty: 60 0RF aspirin 81 mg tablet 81 mg PO DAILY Qty: 30 0RF bisacodyl [Dulcolax (bisacodyl)] 10 mg suppository 10 mg RECTAL DAILY PRN (Reason: constipation) Qty: 12 0RF Rx Instructions: If no BM for 3 days Continued metoprolol succinate [Toprol XL] 25 mg tablet extended release 24 hr 25 mg PO DAILY Qty: 90 2RF Date of admission: 09/04/25 11:29 Primary Care Provider: Vernon Matos Admitting Provider: Blair Hazel Attending physician on admission: Blair Hazel Condition: Improved Quality VTE Prophylaxis VTE prophylaxis: pharmacologic ordered Hospitalist MIPS Heart Failure (Exclusion) Patient has history of Heart Transplant or Left Ventricular Assistive Device?: No IF YES, STOP HERE Heart Failure (Qualifier) Patient has current or prior documentation of LVEF less than or equal to 40%, or mod/servere depressed LVSF?: No IF NO, STOP HERE
[2025-09-06] MEDS: BISACODYL 10 MG SUPPOSITORY RECTAL (14:12)
[2025-09-06] MEDS: BISACODYL 5 MG TABLET EC PO (14:12)
--- NOTE | 2025-09-06 14:13 | PM.PNGS ---
Progress Note: A&P Assessment and Plan (1) Stroke-like symptoms: Code(s): R29.90 - Unspecified symptoms and signs involving the nervous system Status: Acute Assessment and Plan: MRI of the brain demonstrated small acute infarct involving the hand knob of the right precentral motor cortex. Small old lacunar infarct at the left cerebellar hemisphere. Follow up per neurology recommendations. Eliquis restarted (2) History of right hemicolectomy: Code(s): Z90.49 - Acquired absence of other specified parts of digestive tract Status: Acute Assessment and Plan: Healing well following his right hemicolectomy on 08/30/25. Tolerating a solid diet with no nausea or vomiting. Having bowel movements. Patient will come see us in outpatient clinic in two weeks. Stable for discharge from surgical standpoint. (3) Anemia: Code(s): D64.9 - Anemia, unspecified Status: Acute Assessment and Plan: Stable (4) Atrial fibrillation: Code(s): I48.91 - Unspecified atrial fibrillation Status: Acute Assessment and Plan: Oral anticoagulation restarted. Plan Discussed patient's case and plan of care with Dr. Perry. Subjective Subjective Date/Time Seen: 09/06/25 14:13 Patient reports: no new complaints, feels better, tolerating a regular diet (heart healthy) and bowel movement Interval history: Patient doing well. Tolerating full diet without any nausea or vomiting. Having good bowel movements. Denies any abdominal pain. Exam Const: General: comfortable and no acute distress Chest: Other: very small amount of crepitus present today GI: Inspection: non-distended Auscultation: normal bowel sounds and Hypoactive bowel sounds present Other: Incisions are dry with glue intact, no erythema. Healing ecchymosis to the LLQ extending towards his left flank as well as some ecchymosis extending to his left upper thigh and suprapubic area. No palpable hematoma. Objective Data Vital Signs Vital Signs: Vital Signs - 24 hr 09/05/25 16:00 09/05/25 20:00 09/05/25 20:00 Temperature Pulse Rate 80 62 94 Respiratory Rate 16 Blood Pressure Pulse Oximetry 96 Oxygen Delivery Room Air 09/05/25 20:15 09/05/25 20:50 09/06/25 00:00 Temperature 97.4 F L Pulse Rate 62 86 Respiratory Rate 16 Blood Pressure 135/76 Pulse Oximetry 96 96 Oxygen Delivery Room Air 09/06/25 04:00 09/06/25 04:43 09/06/25 08:00 Temperature 97.4 F L Pulse Rate 80 91 Respiratory Rate 18 Blood Pressure 132/83 Pulse Oximetry 97 Oxygen Delivery Room Air 09/06/25 08:00 09/06/25 09:02 09/06/25 10:50 Temperature Pulse Rate 77 91 Respiratory Rate Blood Pressure Pulse Oximetry Oxygen Delivery Room Air 09/06/25 12:00 09/06/25 14:00 Temperature 97.5 F L Pulse Rate 81 95 Respiratory Rate 18 Blood Pressure 123/64 Pulse Oximetry 98 Oxygen Delivery Intake/Output Intake/Output: Intake & Output 09/03/25 09/04/25 09/05/25 09/06/25 23:59 23:59 23:59 23:59 Intake Total 240 1000 780 Balance 240 1000 780 Meds/Results Medications: Active Medications Generic Name Dose Route Start Last Admin Trade Name Freq PRN Reason Stop Dose Admin Acetaminophen 650 mg 09/04/25 11:29 Acetaminophen 325 Mg Tablet PO Q4H PRN Mild Pain (1-3) or Fever Apixaban 5 mg 09/05/25 21:00 09/05/25 21:47 Apixaban 5 Mg Tablet PO 5 mg Q12HR DONNA Administration Artificial Tears 1 drop 09/05/25 12:53 09/05/25 13:01 Artificial Tears Ophth Soln 15 Ml Bottle EACH EYE 1 drop QID PRN Administration Dry Eye(s) Metoprolol Succinate 25 mg 09/04/25 13:35 09/06/25 09:02 Metoprolol Succinate Ext Rel 25 Mg Tabcr PO 25 mg DAILY DONNA Administration Ondansetron HCl 4 mg 09/04/25 11:29 Ondansetron Inj 4 Mg/2 Ml Vial IV PUSH Q4H PRN Nausea Perflutren Lipid Microsphere 0 ml 09/04/25 11:29 Perflutren Lipid Microspheres 1.5 Ml Vial Diluted To 10 Ml Total Volume IV PUSH 09/07/25 11:31 ONCE PRN adequate visualization Protocol Polyethylene Glycol 17 gm 09/05/25 12:25 09/06/25 09:02 Polyethylene Glycol 3350 17 Gm Powd.Pack PO 17 gm QAM DONNA Administration Radiology Results: ITS Impressions Head/Neck CTA 09/04/25 09:34 IMPRESSION: 1. Moderately severe scattered atherosclerotic disease but no critical stenosis or occlusion seen. 2. Extensive emphysematous changes in the extrathoracic soft tissues on the left side. Correlate with clinical presentation and exam for additional imaging of the chest as clinically appropriate. Chest X-Ray 09/04/25 09:50 IMPRESSION: 1. No acute cardiopulmonary findings given portable technique. 2. Subcutaneous emphysema left lateral chest wall. Trauma? Abdomen/Pelvis CT 09/04/25 13:50 IMPRESSION: 1. 1. Extensive subcutaneous emphysema of the lower anterior and left lateral chest wall and upper abdominal wall. 2. No evidence of pneumothorax at the lung bases. No evidence of pneumoperitoneum. 3. Mildly dilated loops of small bowel measuring up to 30 mm in diameter. 4 above mentioned findings were discussed with the admitting physician at 2:16 PM. Brain MRI 09/05/25 16:07 IMPRESSION: 1. Small acute infarct involving the hand knob of the right precentral motor cortex. 2. Small old lacunar infarct at the left cerebellar hemisphere. Labs Labs: Laboratory Results - last 24 hr 09/06/25 05:59 WBC 7.8 RBC 4.46 L Hgb 11.1 L Hct 37.9 L MCV 85.0 MCH 24.9 L MCHC 29.3 L RDW 22.7 H Plt Count 248 MPV 10.0 Immature Gran % (Auto) 0.8 H Neut % (Auto) 73.8 H Lymph % (Auto) 14.7 L [place] % (Auto) 8.6 H Eos % (Auto) 1.5 Baso % (Auto) 0.6 Lymph # (Auto) 1.14 [place] # (Auto) 0.7 H Eos # (Auto) 0.1 Baso # (Auto) 0.1 Abs Immat Gran (auto) 0.06 H Absolute Neuts (auto) 5.7 Absolute Nucleated RBC 0.000 Band Neutrophils % Not Reportable Nucleated RBC % 0.0 Platelet Estimate Adequate Hypochromasia 1+ Poikilocytosis Occasional Anisocytosis 2+ Ovalocytes 2+ Schistocytes None seen Sodium 135 L Potassium 4.4 Chloride 105 Carbon Dioxide 26 Anion Gap 4 BUN 20 Creatinine 0.84 Estim Creat Clear Calc 52 Estimated GFR > 60 Glucose 94 Calcium 8.1 L Total Bilirubin 0.5 AST 29 ALT 20 Alkaline Phosphatase 56 Total Protein 5.9 L Albumin 3.0 L
[2025-09-06] MEDS: INFLUENZA VACCINE HIGH DOSE (>64) 180 MCG/0.5 ML SYRINGE IM (15:06)
== END 2025-09-06 15:35 | disposition home or self-care (01) ==
LOC: ANHED 10:20 → ANH3MEDSUR 12:29
PROVIDERS: Emergency Medicine; Physician Assistant; Admitting Provider Internal Medicine; Emergency Provider Physician Assistant; PCP Physician Assistant; Visit Provider Internal Medicine
DX: I63.9 Cerebral infarction, unspecified (principal); R29.90 Unspecified symptoms and signs involving the nervous system; N17.9 Acute kidney failure, unspecified; D64.9 Anemia, unspecified; I42.9 Cardiomyopathy, unspecified; I10 Essential (primary) hypertension; I48.91 Unspecified atrial fibrillation; I45.10 Unspecified right bundle-branch block; I34.0 Nonrheumatic mitral (valve) insufficiency; I07.1 Rheumatic tricuspid insufficiency; C18.0 Malignant neoplasm of cecum; T81.82XA Emphysema (subcutaneous) resulting from a procedure, initial encounter; R19.15 Other abnormal bowel sounds; Z23 Encounter for immunization; Z79.01 Long term (current) use of anticoagulants; Z90.49 Acquired absence of other specified parts of digestive tract; Z85.038 Personal history of other malignant neoplasm of large intestine; Z85.46 Personal history of malignant neoplasm of prostate; Z87.891 Personal history of nicotine dependence; Z82.3 Family history of stroke; Z80.9 Family history of malignant neoplasm, unspecified; Z82.49 Family history of ischemic heart disease and other diseases of the circulatory system
CPT/HCPCS: 36415; 70496; 70498; 70551; 71045; 74177; 80053; 80061; 82948; 83036; 84484; 85025; 85610; 85730; 90471; 90662; 92610; 93005; 96375; 97161; 97165; 99285; A9270; C8929; G0008; G0378; J1650; J7030; Q9957; Q9967